=== PATIENT | female | born 1950 | race Caucasian/White ===

== ENCOUNTER → 2016-11-21 | Outpatient (CLI) | payer MEDICARE ==
--- NOTE | 2016-11-21 14:42 | XR ---
EXAMINATION TYPE: XR chest 2V DATE OF EXAM: 11/21/2016 12:46 PM HISTORY: R05 cough. REFERENCE: NONE. FINDINGS: The lungs are clear. Pleural spaces are clear. The heart is not enlarged. IMPRESSION: NORMAL CHEST.
== END | disposition home or self-care (01) ==
LOC: RADXRMAIN 12:26
PROVIDERS: ATTEND Family Medicine
DX: R05 Cough (principal)
CPT/HCPCS: 71020

== ENCOUNTER → 2018-03-27 | Outpatient (CLI) | payer MEDICARE ==
--- NOTE | 2018-03-28 12:24 | MM ---
Reason for exam: screening (asymptomatic). Last mammogram was performed 2 years and 1 month ago. History: Patient is postmenopausal. Physical Findings: A clinical breast exam by your physician is recommended on an annual basis and results should be correlated with mammographic findings. MG 3D Screening Mammo W/Cad Bilateral CC and MLO view(s) were taken. Prior study comparison: March 08, 2016, bilateral MG 3d screening mammo w/cad. March 21, 2012, bilateral digital screening mammo w/CAD. There are scattered fibroglandular densities. Benign appearing bilateral calcifications. No suspicious abnormality. ASSESSMENT: Benign, BI-RAD 2 RECOMMENDATION: Routine screening mammogram of both breasts in 1 year.
== END | disposition home or self-care (01) ==
LOC: RADMAMWWP 13:37
PROVIDERS: ATTEND Family Medicine
DX: Z12.31 Encounter for screening mammogram for malignant neoplasm of breast (principal)
CPT/HCPCS: 77063; 77067

== ENCOUNTER → 2018-06-12 | Outpatient (CLI) | payer MEDICARE ==
--- NOTE | 2018-06-13 08:22 | BD ---
EXAMINATION TYPE: Axial Bone Density DATE OF EXAM: 06/12/2018 COMPARISON: DEXA bone scan March 01, 2012 CLINICAL HISTORY: Postmenopausal female Height: 62 Weight: 183.2 FRAX RISK QUESTIONS: Alcohol (3 or more units per day): no Family History (Parent hip fracture): no Glucocorticoids (More than 3mos): no (Ex: prednisone, prednisolone, methylprednisolone, dexamethasone, and hydrocortisone). History of Fracture in Adulthood: no Secondary Osteoporosis: 1. Type 1 Diabetes: no 2. Hyperthyroidism: no 3. Menopause before 45: no 4. Malnutrition: no 5. Chronic liver disease: no Rheumatoid Arthritis: no Current Tobacco Use: no RISK FACTORS HISTORY OF: Active: sometimes Diet low in dairy products/other sources of calcium: yes Postmenopausal woman: hysterectomy at 47 Lost more than 2 inches in height since high school: just 2 inches MEDICATIONS: anti-anxiety med, cholesterol med Additional History: EXAM MEASUREMENTS: Bone mineral densitometry was performed using the [employer]ancion System. Bone mineral density as measured about the Lumbar spine is: ----- L1-L4(G/cm2): 0.910 T Score Values are as follows: ----- L2: -2.4 ----- L3: -2.2 ----- L4: -2.2 ----- L1-L4: -2.3 Bone mineral density has: decreased -11.0 % since study of: 03.21.2012 Bone mineral density about the R hip (g/cm2): 0.733 Bone mineral density about the L hip (g/cm2): 0.737 T Score values are as follows: -----R Neck: -2.2 -----L Neck: -2.2 -----R Total: -1.5 -----L Total: -1.8 Bone mineral density has: decreased -5.5 % since study of: 03.21.2012 IMPRESSION: Osteopenia (T Score between -2.5 and -1) remains present and low back and both hips. Bone density not ed decreased or diminished from 2011. There remains slightly increased risk of fracture and the patient may be considered for treatment. Re-Screen 2-5 years. NOTE: T-SCORE=SD OF THE YOUNG ADULT MEAN.
== END | disposition home or self-care (01) ==
LOC: RADBDWWP 16:27
PROVIDERS: ATTEND Family Medicine
DX: M85.88 Other specified disorders of bone density and structure, other site (principal); M85.852 Other specified disorders of bone density and structure, left thigh; M85.851 Other specified disorders of bone density and structure, right thigh
CPT/HCPCS: 77080

== ENCOUNTER → 2018-09-07 | Outpatient (CLI) | payer MEDICARE | END | disposition home or self-care (01) | LOC: LABWHC1 14:29 | PROVIDERS: ATTEND Internal Medicine Critical Care Medicine | DX: J45.909 Unspecified asthma, uncomplicated (principal) | CPT/HCPCS: 36415; 82785; 85008 ==

== ENCOUNTER → 2019-06-07 | Outpatient (CLI) | payer MEDICARE ==
--- NOTE | 2019-06-10 09:23 | MM ---
Reason for exam: screening (asymptomatic). Last mammogram was performed 1 year and 2 months ago. History: Patient is postmenopausal. Physical Findings: A clinical breast exam by your physician is recommended on an annual basis and results should be correlated with mammographic findings. MG 3D Screening Mammo W/Cad Bilateral CC and MLO view(s) were taken. Prior study comparison: March 27, 2018, bilateral MG 3d screening mammo w/cad. March 08, 2016, bilateral MG 3d screening mammo w/cad. There are scattered fibroglandular densities. Benign appearing bilateral calcifications. No suspicious abnormality. No significant changes when compared with prior studies. ASSESSMENT: Benign, BI-RAD 2 RECOMMENDATION: Routine screening mammogram of both breasts in 1 year.
== END | disposition home or self-care (01) ==
LOC: RADMAMWWP 14:19
PROVIDERS: ATTEND Family Medicine
DX: Z12.31 Encounter for screening mammogram for malignant neoplasm of breast (principal)
CPT/HCPCS: 77063; 77067

== ENCOUNTER → 2021-04-20 | Outpatient (CLI) | payer MEDICARE ==
--- NOTE | 2021-04-20 15:32 | ECHOS ---
STRESS ECHOCARDIOGRAM INDICATIONS: Dyspnea BASELINE HEART RATE: 73 BASELINE BLOOD PRESSURE: 143/67 MAXIMUM HEART RATE: 147 MAXIMUM BLOOD PRESSURE: 210/73 85% MPHR: 126 100% MPHR: 148 METS: 7.3 MAXIMUM STAGE REACHED: 2 TOTAL EXERCISE TIME: 6:03 CLINICAL INFORMATION: Baseline EKG revealed normal sinus rhythm without significant ST-T changes. Patient walked on a standard Eliseo protocol for 6 minutes 3 seconds, achieved a maximal heart rate of 147 beats per minute, which is more than 85% of predicted maximal. She developed fatigue and shortness of breath but did not have any angina or arrhythmia. EKG did not reveal any ST-segment changes to indicate ischemia. By EKG criteria, this is a negative stress test with limited exercise capacity. The patient had a hypertensive response to exercise with a peak blood pressure of 210/73. Resting blood pressure was 143/67. By EKG criteria, this is a negative stress test with fair exercise capacity. Baseline echo images revealed normal wall motion and wall thickening of all segments. At peak exercise there was good augmentation of left ventricular wall motion and wall thickening of all segments, suggesting that there is no evidence of stress-induced ischemia on this study. FINAL IMPRESSION: 1. Fair exercise capacity with a negative stress test by EKG criteria. 2. Normal stress echocardiogram without evidence of ischemia. MMODL / IJN: [id number] /
== END | disposition home or self-care (01) ==
LOC: RADNMMAIN 10:01
PROVIDERS: ATTEND Family Medicine
DX: R06.02 Shortness of breath (principal); R53.83 Other fatigue
CPT/HCPCS: 93351

== ENCOUNTER 2021-08-09 17:39 | Emergency (ER) | payer MEDICARE ==
[2021-08-09 18:26] VITALS: BP 174/83; PULSE 76; RESP 16; TEMP 98.9
--- NOTE | 2021-08-09 18:27 | ED ---
SOB HPI <Joana Gibson - Last Filed: 08/09/21 18:25> <Power Larsen - Last Filed: 08/09/21 20:49> - General Stated Complaint: covid+, increased SOB Time Seen by Provider: 08/09/21 18:16 - History of Present Illness Initial Comments: Janay is a pleasant 71yo F with PMH of asthma who presents to the ER today via private vehicle requesting monoclonal antibody therapy for COVID-19. Patient is not vaccinated. Patient reports she has had some cough, shortness of breath and headache for a couple of days, she took 2 home tests today and was positive for COVID. (Joana Gibson) Patient additionally describes to me that she was having congestion as well as some chest tightness. Symptoms otherwise as above no history of heart disease or is a heart disease history in the family at her age however. (Power Larsen) - Related Data Home Medications Medication Instructions Recorded Confirmed Ascorbic Acid [Vitamin C] 500 mg PO DAILY 08/09/21 08/09/21 Atorvastatin [Lipitor] 20 mg PO HS 08/09/21 08/09/21 Cholecalciferol [Vitamin D3 (25 25 mcg PO DAILY 08/09/21 08/09/21 Mcg = 1000 Iu)] Citalopram Hydrobromide 40 mg PO HS 08/09/21 08/09/21 Doxycycline Hyclate 100 mg PO BID 08/09/21 08/09/21 Montelukast [Singulair] 10 mg PO HS 08/09/21 08/09/21 Zinc 50 mg PO DAILY 08/09/21 08/09/21 Allergies Allergy/AdvReac Type Severity Reaction Status Date / Time No Known Allergies Allergy Verified 08/09/21 20:21 Review of Systems ROS Other: All systems not noted in ROS Statement are negative. <Joana Gibson - Last Filed: 08/09/21 18:25> ROS Other: All systems not noted in ROS Statement are negative. <Power Larsen - Last Filed: 08/09/21 20:49> ROS Statement: Those systems with pertinent positive or pertinent negative responses have been documented in the HPI. General Exam General appearance: alert, in no apparent distress Head exam: Present: atraumatic, normocephalic, normal inspection Eye exam: Present: normal appearance, PERRL, EOMI. Absent: scleral icterus, conjunctival injection, periorbital swelling ENT exam: Present: normal exam, mucous membranes moist Neck exam: Present: normal inspection. Absent: tenderness, meningismus, lymphadenopathy Respiratory exam: Present: normal lung sounds bilaterally. Absent: respiratory distress, wheezes, rales, rhonchi, stridor Cardiovascular Exam: Present: regular rate, normal rhythm, normal heart sounds. Absent: systolic murmur, diastolic murmur, rubs, gallop, clicks GI/Abdominal exam: Present: soft, normal bowel sounds. Absent: distended, tenderness, guarding, rebound, rigid Extremities exam: Present: normal inspection, full ROM, normal capillary refill. Absent: tenderness, pedal edema, joint swelling, calf tenderness Back exam: Present: normal inspection Neurological exam: Present: alert, oriented X3, CN II-XII intact Psychiatric exam: Present: normal affect, normal mood Skin exam: Present: warm, dry, intact, normal color. Absent: rash <Power Larsen - Last Filed: 08/09/21 20:49> - General Exam Comments Initial Comments: This is a well-developed well-nourished awake alert oriented 3 female (Power Larsen) Course Vital Signs 08/09/21 18:23 Temperature 98.9 F Pulse Rate 76 Respiratory 16 Rate Blood Pressure 174/83 O2 Sat by Pulse 96 Oximetry Medical Decision Making - Lab Data Result diagrams: 08/09/21 19:44 08/09/21 19:44 - EKG Data -: EKG Interpreted by [facility] EKG shows normal: sinus rhythm, axis, intervals, QRS complexes, ST-T waves Rate: normal - Radiology Data Radiology results: report reviewed (Imaging and report were reviewed no acute findings), image reviewed <Power Larsen - Last Filed: 08/09/21 20:49> - Medical Decision Making I did a long discussion with the patient regarding findings patient is a candidate for antibody effusion which she will receive she'll be discharged home after that. She will follow-up with her doctor and return as needed (Power Larsen) - Lab Data Lab Results 08/09/21 08/09/21 08/09/21 Range/Units 18:37 19:44 19:44 WBC 3.6 L (3.8-10.6) k/uL RBC 4.75 (3.80-5.40) m/uL Hgb 13.8 (11.4-16.0) gm/dL Hct 42.3 (34.0-46.0) % MCV 88.9 (80.0-100.0) fL MCH 29.0 (25.0-35.0) pg MCHC 32.7 (31.0-37.0) g/dL RDW 12.1 (11.5-15.5) % Plt Count 147 L (150-450) k/uL MPV 7.7 Neutrophils % 57 % Lymphocytes % 23 % Monocytes % 15 % Eosinophils % 1 % Basophils % 1 % Neutrophils # 2.0 (1.3-7.7) k/uL Lymphocytes # 0.8 L (1.0-4.8) k/uL Monocytes # 0.5 (0-1.0) k/uL Eosinophils # 0.0 (0-0.7) k/uL Basophils # 0.0 (0-0.2) k/uL PT 10.3 (9.0-12.0) sec INR 1.0 (<1.2) APTT 24.3 (22.0-30.0) sec D-Dimer 0.29 (<0.60) mg/L FEU Sodium (137-145) mmol/L Potassium (3.5-5.1) mmol/L Chloride (98-107) mmol/L Carbon Dioxide (22-30) mmol/L Anion Gap mmol/L BUN (7-17) mg/dL Creatinine (0.52-1.04) mg/dL Est GFR (CKD-EPI)AfAm (>60 ml/min/1.73 sqM) Est GFR (CKD-EPI)NonAf (>60 ml/min/1.73 sqM) Glucose (74-99) mg/dL Plasma Lactic Acid Cecilio (0.7-2.0) mmol/L Calcium (8.4-10.2) mg/dL Magnesium (1.6-2.3) mg/dL Total Bilirubin (0.2-1.3) mg/dL AST (14-36) U/L ALT (4-34) U/L Alkaline Phosphatase (38-126) U/L Troponin I (0.000-0.034) ng/mL NT-Pro-B Natriuret Pep pg/mL Total Protein (6.3-8.2) g/dL Albumin (3.5-5.0) g/dL Coronavirus (PCR) Detected A (Not Detectd) 08/09/21 08/09/21 08/09/21 Range/Units 19:44 19:44 19:44 WBC (3.8-10.6) k/uL RBC (3.80-5.40) m/uL Hgb (11.4-16.0) gm/dL Hct (34.0-46.0) % MCV (80.0-100.0) fL MCH (25.0-35.0) pg MCHC (31.0-37.0) g/dL RDW (11.5-15.5) % Plt Count (150-450) k/uL MPV Neutrophils % % Lymphocytes % % Monocytes % % Eosinophils % % Basophils % % Neutrophils # (1.3-7.7) k/uL Lymphocytes # (1.0-4.8) k/uL Monocytes # (0-1.0) k/uL Eosinophils # (0-0.7) k/uL Basophils # (0-0.2) k/uL PT (9.0-12.0) sec INR (<1.2) APTT (22.0-30.0) sec D-Dimer (<0.60) mg/L FEU Sodium 136 L (137-145) mmol/L Potassium 3.6 (3.5-5.1) mmol/L Chloride 104 (98-107) mmol/L Carbon Dioxide 22 (22-30) mmol/L Anion Gap 10 mmol/L BUN 9 (7-17) mg/dL Creatinine 0.64 (0.52-1.04) mg/dL Est GFR (CKD-EPI)AfAm >90 (>60 ml/min/1.73 sqM) Est GFR (CKD-EPI)NonAf 89 (>60 ml/min/1.73 sqM) Glucose 117 H (74-99) mg/dL Plasma Lactic Acid Cecilio 1.6 (0.7-2.0) mmol/L Calcium 8.9 (8.4-10.2) mg/dL Magnesium 1.8 (1.6-2.3) mg/dL Total Bilirubin 0.5 (0.2-1.3) mg/dL AST 35 (14-36) U/L ALT 23 (4-34) U/L Alkaline Phosphatase 115 (38-126) U/L Troponin I <0.012 (0.000-0.034) ng/mL NT-Pro-B Natriuret Pep pg/mL Total Protein 6.2 L (6.3-8.2) g/dL Albumin 3.5 (3.5-5.0) g/dL Coronavirus (PCR) (Not Detectd) 08/09/21 Range/Units 19:44 WBC (3.8-10.6) k/uL RBC (3.80-5.40) m/uL Hgb (11.4-16.0) gm/dL Hct (34.0-46.0) % MCV (80.0-100.0) fL MCH (25.0-35.0) pg MCHC (31.0-37.0) g/dL RDW (11.5-15.5) % Plt Count (150-450) k/uL MPV Neutrophils % % Lymphocytes % % Monocytes % % Eosinophils % % Basophils % % Neutrophils # (1.3-7.7) k/uL Lymphocytes # (1.0-4.8) k/uL Monocytes # (0-1.0) k/uL Eosinophils # (0-0.7) k/uL Basophils # (0-0.2) k/uL PT (9.0-12.0) sec INR (<1.2) APTT (22.0-30.0) sec D-Dimer (<0.60) mg/L FEU Sodium (137-145) mmol/L Potassium (3.5-5.1) mmol/L Chloride (98-107) mmol/L Carbon Dioxide (22-30) mmol/L Anion Gap mmol/L BUN (7-17) mg/dL Creatinine (0.52-1.04) mg/dL Est GFR (CKD-EPI)AfAm (>60 ml/min/1.73 sqM) Est GFR (CKD-EPI)NonAf (>60 ml/min/1.73 sqM) Glucose (74-99) mg/dL Plasma Lactic Acid Cecilio (0.7-2.0) mmol/L Calcium (8.4-10.2) mg/dL Magnesium (1.6-2.3) mg/dL Total Bilirubin (0.2-1.3) mg/dL AST (14-36) U/L ALT (4-34) U/L Alkaline Phosphatase (38-126) U/L Troponin I (0.000-0.034) ng/mL NT-Pro-B Natriuret Pep 121 pg/mL Total Protein (6.3-8.2) g/dL Albumin (3.5-5.0) g/dL Coronavirus (PCR) (Not Detectd) - EKG Data EKG Comments: No sinus rhythm at 74. Interval 132 QRS 82 QT since QTC 380/[address]-t wave changes (Power Larsen) Disposition <Joana Gibson - Last Filed: 08/09/21 18:25> Is patient prescribed a controlled substance at d/c from ED?: No <Power Larsen - Last Filed: 08/09/21 20:49> Clinical Impression: COVID-19 Disposition: HOME SELF-CARE Condition: Good Instructions (If sedation given, give patient instructions): Coronavirus Disease 2019 (COVID-19) Additional Instructions: Symptomatic care. Follow-up with your doctor Referrals: Ze Martinez DO [Primary Care Provider] - 1-2 days
[2021-08-09] MEDS ORDERED: ALBUTEROL HFA INHALER INHALATION STA (18:51)
[2021-08-09 19:51] LABS: Basophils % (A) 1 %; Eosinophils % (A) 1 %; HCT 42.3 % (34.0-46.0); HGB 13.8 gm/dL (11.4-16.0); Lymphocytes # (A) 0.8 k/uL (1.0-4.8); Lymphocytes % (A) 23 %; MCHC 32.7 g/dL (31.0-37.0); MCV 88.9 fL (80.0-100.0); Mean Platelet Volume 7.7; Monocytes # (A) 0.5 k/uL (0-1.0); Monocytes % (A) 15 %; Neutrophils % (A) 57 %; Platelet Count 147 k/uL (150-450); RBC 4.75 m/uL (3.80-5.40); RDW 12.1 % (11.5-15.5); WBC 3.6 k/uL (3.8-10.6)
[2021-08-09 20:00] LABS: ALT 23 U/L (4-34); AST 35 U/L (14-36); African American GFR (CKD) >90 (>60 ml/min/1.73 sqM); Albumin 3.5 g/dL (3.5-5.0); Alkaline Phosphatase 115 U/L (38-126); Anion Gap 10 mmol/L; Blood Urea Nitrogen 9 mg/dL (7-17); Calcium 8.9 mg/dL (8.4-10.2); Carbon Dioxide 22 mmol/L (22-30); Chloride 104 mmol/L (98-107); Glucose 117 mg/dL (74-99); Magnesium 1.8 mg/dL (1.6-2.3); Non-African American GFR(CKD) 89 (>60 ml/min/1.73 sqM); Potassium 3.6 mmol/L (3.5-5.1); Sodium 136 mmol/L (137-145); Total Bilirubin 0.5 mg/dL (0.2-1.3); Total Protein 6.2 g/dL (6.3-8.2)
[2021-08-09 20:12] LABS: Partial Thromboplastin Time 24.3 sec (22.0-30.0); Prothrombin Time 10.3 sec (9.0-12.0)
[2021-08-09] MEDS ORDERED: SODIUM CHLORIDE 0.9% 50 ML IVPB ONE (20:30)
--- NOTE | 2021-08-09 20:44 | XR ---
EXAMINATION TYPE: XR chest 2V DATE OF EXAM: 08/09/2021 COMPARISON: 08/10/2018 HISTORY: Shortness of breath TECHNIQUE: Frontal and lateral views of the chest are obtained. FINDINGS: There is no focal air space opacity, pleural effusion, or pneumothorax seen. The cardiac silhouette size is within normal limits. The osseous structures are intact. IMPRESSION: No acute cardiopulmonary process.
[2021-08-09] MEDS ORDERED: BAMLANIVIMAB (EUA) 700 MG, ETESEVIMAB (EUA) 1,400 MG in SODIUM CHLORIDE 0.9% 50 ML IVPB ONE (20:45)
== END 2021-08-09 22:58 | disposition home or self-care (01) ==
LOC: EC 17:39
DX: U07.1 COVID-19 (principal); Z79.899 Other long term (current) drug therapy
CPT/HCPCS: 36415; 94640; 93005; 85379; 83880; 80053; 83605; 83735; 84484; 85025; 85610; 85730; 87040; 87635; 71046; 99285; J3490

== ENCOUNTER → 2021-10-28 | Outpatient (CLI) | payer MEDICARE | END | disposition home or self-care (01) | LOC: LABWHC1 13:06 | PROVIDERS: ATTEND Internal Medicine Critical Care Medicine | DX: J45.909 Unspecified asthma, uncomplicated (principal) | CPT/HCPCS: 36415; 85008 ==

== ENCOUNTER 2021-12-28 09:26 | Day surgery (SDC) | payer MEDICARE ==
[2021-12-24 15:03] VITALS: BMI 32.4
[~2021-12-28 09:26] MED LIST: LACTATED RINGERS 1,000 ML IV SCH; LIDOCAINE 1% (10MG/ML) FOR IV START INTRADERMA PRN; ONDANSETRON 4 MG/2 ML VIAL IVP PRN
[2021-12-28 10:00] VITALS: RESP 16; TEMP 97.5
[2021-12-28] MEDS ORDERED: LIDOCAINE 2% INJ 20 MG/ML (2 ML VIAL) ONE (10:59)
[2021-12-28] MEDS ORDERED: PROPOFOL 10 MG/ML 20 ML VIAL IV ONE (10:59)
--- NOTE | 2021-12-28 11:32 | P.PCN ---
Date of Procedure: 12/28/21 Procedure(s) Performed: BRIEF HISTORY: Patient is a 71-year-old pleasant female scheduled for an elective colonoscopy as a part of evaluation of positive cologuard. Her last colonoscopy was 20 years ago. PROCEDURE PERFORMED: Colonoscopy. PREOPERATIVE DIAGNOSIS: Positive cologuard IV sedation per Anesthesia. PROCEDURE: After informed consent was obtained, the patient, was brought into the endoscopy unit. IV sedation was administered by Anesthesia under continuous monitoring. Digital rectal examination was normal. Initially the Olympus CF-160 flexible video colonoscope was then inserted in the rectum, gradually advanced into the cecum; and the scope could not be advanced any further. Scope was removed and a pediatric colonoscopy was then introduced into the rectum and gradually advanced into the cecum with moderate to severe difficulty. Careful examination was performed as the scope was gradually being withdrawn. Ileocecal valve and the appendiceal orifice were visualized and appeared normal. Prep was excellent. Mucosa of the cecum, ascending colon, transverse colon, descending colon, sigmoid colon, and rectum appeared normal. Sigmoid diverticulosis. Retroflexion was performed in the rectum and no lesions were seen. The patient tolerated the procedure well. IMPRESSION: Normal-appearing colon from rectum to cecum with no evidence of colorectal neoplasia . Moderate sigmoid diverticulosis. RECOMMENDATIONS: Findings of this examination were discussed with the patient as well as a family.. She was advised to have a repeat screening colonoscopy in 10 years.
[2021-12-28 12:04] VITALS: BP 150/86; PULSE 69
== END 2021-12-28 12:33 | disposition home or self-care (01) ==
LOC: ORWHC2ENDO 09:26
PROVIDERS: ATTEND Internal Medicine Gastroenterology
DX: Z12.11 Encounter for screening for malignant neoplasm of colon (principal); K57.30 Diverticulosis of large intestine without perforation or abscess without bleeding
CPT/HCPCS: 45378; J2704; J2001

== ENCOUNTER → 2022-01-12 | Outpatient (CLI) | payer MEDICARE ==
--- NOTE | 2022-01-12 15:44 | CT ---
EXAMINATION TYPE: CT chest w con DATE OF EXAM: 01/12/2022 COMPARISON: NONE HISTORY: Dyspnea CT DLP: 338.0 mGycm. Automated Exposure Control for Dose Reduction was Utilized. TECHNIQUE: CT scan of the thorax is performed following with IV Contrast, patient injected with 100 mL of Isovue 300. FINDINGS: LUNGS: Mild linear scarring and/or atelectasis left lung base. Right lung is clear. No suspicious foc al consolidation. No concerning pulmonary nodules or masses. There is no pleural effusion or pneumoth orax seen. The tracheobronchial tree is patent. MEDIASTINUM: There are no greater than 1 cm hilar or mediastinal lymph nodes. Tiny anterior and infer ior pericardial effusion is seen. No cardiomegaly. OTHER: Cholecystectomy clips. There are large staghorn type calculi in the left kidney involving midd le pole and lower pole calyces. These are even well seen on the localizer. For reference lower pole c alculus measures 1.7 cm long axis coronal image 52. IMPRESSION: 1. Mild left basilar linear scarring and/or atelectasis. No acute pulmonary process. 2. Large staghorn type calculi left kidney midpole level and lower pole level. Advise urology referra shey
== END | disposition home or self-care (01) ==
LOC: RADCTMAIN 11:31
PROVIDERS: ATTEND Internal Medicine Critical Care Medicine
DX: N20.0 Calculus of kidney (principal); J98.4 Other disorders of lung
CPT/HCPCS: 82565; 84520; 71260; 36415; Q9967

== ENCOUNTER → 2022-05-10 | Outpatient (CLI) | payer MEDICARE ==
--- NOTE | 2022-05-10 14:14 | P.SLEEP ---
History of Present Illness H&P Date: 05/10/22 Chief Complaint: Hypersomnia This is a 71-year-old female patient was referred to me for obstructive sleep apnea. The patient has been told by family members including her daughters that she snores very loud and she is feeling more fatigued and tired during the day and this obviously raises the concern for obstructive sleep apnea. The patient is currently and she lost her for The case of renal cell carcinoma approximately 13 years ago. She is knows breathing. She has excessive grinding of the teeth and an overbite. No recent weight gain her weight has been essentially stable over the past 10 years and she may have probably gained around 10 pounds. She is going to bed at around 11 PM, waking up at 8:30 AM in the morning. She does not use an alarm, and she is is waking up relatively fatigued and not refreshed.. No nighttime shortness of breath or heartburn. No nighttime chest pain. Denies waking up choking or gasping for air. Occasionally she has night sweating. No issues with memory or concentration. She is able to generate sleep, and her sleep is not fragmented and she wakes up at night probably wants to go to the bathroom. Her current Enterprise score of 6. No other significant cardiovascular complications. No significant congestion heart failure. No throat. No myocardial infarction. No facial trauma. No head trauma. No history of any cardiac arrhythmias at this point in time. No personal or family history of obstructive sleep apnea. Review of Systems Constitutional: Reports daytime sleepiness, Reports fatigue Eyes: denies as per HPI, denies blurred vision, denies bulging eye, denies decreased vision, denies diplopia, denies discharge, denies dry eye, denies irritation, denies itching, denies pain, denies photophobia, denies loss of peripheral vision, denies loss of vision, denies tunnel vision/blind spots Ears: deny: decreased hearing, ear discharge, earache, tinnitus Ears, nose, mouth and throat: Reports as per HPI Breasts: absent: as per HPI, change in shape, gynecomastia, masses, nipple discharge, pain, skin changes, swelling Cardiovascular: Reports as per HPI Respiratory: Reports as per HPI, Reports snoring Gastrointestinal: Reports as per HPI Genitourinary: Reports as per HPI Menstruation: Reports as per HPI Musculoskeletal: Reports as per HPI Musculoskeletal: absent: ankle pain, ankle stiffness, ankle swelling Integumentary: Reports as per HPI Neurological: Reports as per HPI Psychiatric: Reports as per HPI Endocrine: Reports as per HPI Hematologic/Lymphatic: Reports as per HPI Allergic/Immunologic: Reports as per HPI Past Medical History Past Medical History: Asthma, Hyperlipidemia Additional Past Medical History / Comment(s): Hx. of kidney stones, hyp erlipidemia, asthma, osteopenia, vitamin D deficiency History of Any Multi-Drug Resistant Organisms: None Reported Past Surgical History: Cholecystectomy, Hysterectomy Additional Past Surgical History / Comment(s): colonoscopy, wrist surgery, kidney surgery & Lithotripsy. Past Anesthesia/Blood Transfusion Reactions: No Reported Reaction Smoking Status: Never smoker - Past Family History Mother Family Medical History: AFIB Medications and Allergies Home Medications Medication Instructions Recorded Confirmed Type Ascorbic Acid [Vitamin C] 500 mg PO DAILY 08/09/21 12/24/21 History Atorvastatin [Lipitor] 20 mg PO HS 08/09/21 12/24/21 History Cholecalciferol [Vitamin D3 (25 25 mcg PO DAILY 08/09/21 12/24/21 History Mcg = 1000 Iu)] Citalopram Hydrobromide 40 mg PO HS 08/09/21 12/24/21 History [Citalopram HBr] Montelukast [Singulair] 10 mg PO HS 08/09/21 12/24/21 History Zinc 50 mg PO DAILY 08/09/21 12/24/21 History Allergies Allergy/AdvReac Type Severity Reaction Status Date / Time No Known Allergies Allergy Verified 12/28/21 09:51 Physical Exam BP is 162/84, pulse of 77, respiration of 16, temperature is 97.5, weight is 183 and a body mass index is 33.2. Neck size is 15 inches. Oxygen saturation 96% on room air. The patient appeared well nourished and normally developed. Vital signs as documented. Head exam is unremarkable. No scleral icterus or corneal arcus noted. Neck is without jugular venous distension, thyromegaly, or carotid bruits. Carotid upstrokes are brisk bilaterally. The patient has evidence of grinding of the teeth and she has an overbite along with a Mallampati class IV. Lungs are clear to auscultation and percussion. Cardiac exam reveals the PMI to be normally sized and situated. Rhythm is regular. First and second heart sounds normal. No murmurs, rubs or gallops. Abdominal exam reveals normal bowel sounds, no masses, no organomegaly and no aortic enlargement. Extremities are nonedematous and both femoral and pedal pulses are normal.Examination of the skin revealed no evidence of significant rashes, suspicious appearing nevi or ot her concerning lesions.Neurologically, the patient is awake and alert and the patient does not have any focal neurological deficit. Cranial nerves are essentially intact. Assessment and Plan Plan: Suspected obstructive sleep apnea currently under investigation. Average risk for obstructive sleep apnea. She has no recent weight gain. Nevertheless, she is been told to snoring quits breathing and she has Mallampati class IV along with an overbite. As such, there may be an underlying sleep breathing disorder. Chronic fatigue and sleepiness with an Enterprise score of 6 Grinding of the teeth Bronchial asthma moderate persistent Hyperlipidemia Kidney stones Osteoarthritis and osteopenia History of depression Plan Maintaining adequate sleep hygiene measures Maintain regular sleep schedule Encourage weight loss Treat comorbidities Proceed with his polysomnogram looking for any significant sleep breathing disorder and decision on treatment with depend largely on the results of the sleep study. We'll continue to follow Sleep Note - Sleep Note Sleep Note: Temperature: Pulse Rate: Respiratory Rate: Blood Pressure: SpO2: Height: Weight: BMI: Neck Circumference:
== END ==
LOC: SLEEP 13:06
PROVIDERS: ATTEND Internal Medicine Critical Care Medicine
DX: R40.0 Somnolence (principal); R53.83 Other fatigue; G47.63 Sleep related bruxism; J45.40 Moderate persistent asthma, uncomplicated; E78.5 Hyperlipidemia, unspecified; N20.0 Calculus of kidney; M19.90 Unspecified osteoarthritis, unspecified site; M85.80 Other specified disorders of bone density and structure, unspecified site; F32.A Depression, unspecified
CPT/HCPCS: 99211

== ENCOUNTER 2022-08-09 11:10 | Day surgery (SDC) | payer MEDICARE ==
[2022-08-08 11:27] VITALS: BMI 32.2
[~2022-08-09 11:10] MED LIST changes: +ALBUTEROL NEB (CONC) 2.5 MG/0.5 ML INHALATION ONE; -LIDOCAINE 1% (10MG/ML) FOR IV START INTRADERMA PRN; +LIDOCAINE 2% (PF) 20 MG/ML 5 ML VIAL INHALATION ONE; +LIDOCAINE VISCOUS 300 MG/15 ML CUP MUCOUS MEM ONE; -ONDANSETRON 4 MG/2 ML VIAL IVP PRN
[2022-08-09 11:55] LABS: Glucose,Whole Blood 112 mg/dL (70-110)
[2022-08-09] MEDS ORDERED: KETAMINE 10 MG/ML 20 ML VIAL ONE (12:00)
[2022-08-09] MEDS ORDERED: MIDAZOLAM 2 MG/2 ML VIAL ONE (12:00)
[2022-08-09] MEDS ORDERED: LIDOCAINE 2% INJ 20 MG/ML (2 ML VIAL) ONE (12:00)
[2022-08-09] MEDS ORDERED: PROPOFOL 10 MG/ML 20 ML VIAL IV ONE (12:00)
[2022-08-09] MEDS ORDERED: LIDOCAINE 2% INJ 20 MG/ML INTRATRACH ONE (12:14)
[2022-08-09 12:37] VITALS: TEMP 98.6
[2022-08-09 12:50] VITALS: RESP 16
[2022-08-09 13:37] VITALS: BP 153/84; PULSE 63
--- NOTE | 2022-08-09 19:37 | PCN ---
PROCEDURE NOTE PROCEDURES PERFORMED: Bronchoscopy, airway examination, therapeutic lavage, and bronchoalveolar lavage, right middle lobe. PREOPERATIVE DIAGNOSES: Severe asthma, acute bronchitis with bronchospasm, and retained secretions. POSTOPERATIVE DIAGNOSES: Severe asthma, acute bronchitis with bronchospasm, and retained secretions. DESCRIPTION OF PROCEDURE: There were informed consent and universal time-out. The patient's procedure took place in room #1. Anesthesia provided general anesthesia including Dr. Hand and Dr. Bourne. GOODYEAR STITCHER was also present. After the patient was adequately sedated and being fully monitored, the bronchoscope was inserted through the right nostril. It passed through the right nasopharynx into the oropharynx, then into the hypopharynx. There was significant crowding of the hypopharynx. The hypopharyngeal structures including anterior commissure, true cords, false cords, arytenoids, piriform sinuses - right and left, and valleculae all appeared otherwise normal. Next, after topicalization of the glottic opening, the bronchoscope was pushed through the glottic opening into the trachea. There were secretions noted throughout the trachea. They were suctioned. The trachea otherwise was normal. Tracheal tien was sharp. Right and left mainstem were topicalized. Afterwards, there was a thorough evaluation of both lungs including the right upper lobe and its 3 segments, right middle lobe and its 2 segments, right lower lobe and its 5 segments, left upper lobe proper and its 2 segments, lingula and its 2 segments, and left lower lobe and its 4 segments. Findings were similar throughout including diffuse moderate bronchitis. There were airway erythema and hyperemia. There was some mucosal friability. The mucosa bled easily. There were thick secretions noted throughout. They were suctioned. There was no dominant mass or tumor. Next, the bronchoscope was wedged into the right middle lobe. We did a formal BAL with 30 mL recovered. The bronchoscope was then withdrawn. The fluid will be sent for analysis including cytology and microbiology. The patient tolerated the procedure well. There was no immediate complication. The patient was taken to recovery. The patient's niece was not available for me to talk to her. The patient herself was too lethargic and somnolent from the procedure. MMODL / IJN: [id number] /
[2022-08-09 19:40] LABS: Appearance,BF Clear
== END 2022-08-09 13:51 | disposition home or self-care (01) ==
LOC: ORWHC2ENDO 11:10
PROVIDERS: ATTEND Internal Medicine Critical Care Medicine
DX: J20.9 Acute bronchitis, unspecified (principal); J45.909 Unspecified asthma, uncomplicated
CPT/HCPCS: 88108; 88305; 89050; 87252; 87070; 87205; 87116; 87102; 87206; 31624; J2001 ×2; J2250; J2704; 87496; 87498; 87502; 87529; 87634; 87798

== ENCOUNTER → 2022-11-28 | Outpatient (CLI) | payer MEDICARE ==
[2022-11-28 16:24] LABS: African American GFR (CKD) 84.2 (60.0-200.0); Albumin 4.2 g/dL (3.8-4.9); Albumin/Globulin Ratio 1.83 (1.60-3.17); Anion Gap 9.9 mmol/L (10.00-18.00); BUN/Creat Ratio 12.25 Ratio (12.00-20.00); Blood Urea Nitrogen 9.8 mg/dL (9.0-27.0); Calcium 9.4 mg/dL (8.7-10.3); Carbon Dioxide 25.1 mmol/L (20.0-27.5); Globulin 2.3 g/dL (1.6-3.3); Non-African American GFR(CKD) 72.6 (60.0-200.0); Potassium 4.4 mmol/L (3.5-5.5); Total Bilirubin 0.9 mg/dL (0.30-1.20); Total Protein 6.5 g/dL (6.2-8.2)
[2022-11-29 05:25] LABS: Basophils # (A) 0.01 X 10*3/uL (0.00-0.10); Basophils % (A) 0.2 %; Eosinophils # (A) 0 X 10*3/uL (0.04-0.35); Eosinophils % (A) 0 %; HGB 14.2 g/dL (12.0-15.0); Immature Grans, Automated 0.5 %; Lymphocytes # (A) 0.97 X 10*3/uL (0.90-5.00); Lymphocytes % (A) 17.5 %; MCH 28.9 pg (27.0-32.0); MCHC 32.3 g/dL (32.0-37.0); MCV 89.4 fL (80.0-97.0); Monocytes # (A) 0.64 X 10*3/uL (0.20-1.00); Monocytes % (A) 11.6 %; NRBC Per 100 WBC 0 /100 WBCS (0.0-0.0); Neutrophils # (A) 3.88 X 10*3/uL (1.80-7.70); Neutrophils % (A) 70.2 %; Platelet Count 220 X 10*3/uL (140-440); RBC 4.92 X 10*6/uL (4.10-5.20); RDW 11.7 % (11.5-14.5); WBC 5.53 X 10*3/uL (4.50-10.00)
[2022-11-29 06:11] LABS: Appearance,Urine Cloudy (Clear); Bilirubin,Urine Negative (Negative); Blood,Urine Negative (Negative); Color,Urine Yellow (Yellow); Ketones,Urine Negative (Negative); Nitrite,Urine Negative (Negative); PH, Urine 5.5 (5.0-8.0); Specific Gravity,Urine 1.016 (1.001-1.030)
[2022-11-29 07:50] LABS: Bacteria,Urine None Seen /HPF (None Seen); Calcium Oxalate Crystals,Urine Present /LPF (None Seen)
== END | disposition home or self-care (01) ==
LOC: LABPAT 12:27
PROVIDERS: ATTEND Urology
DX: Z01.812 Encounter for preprocedural laboratory examination (principal); N20.0 Calculus of kidney; R31.29 Other microscopic hematuria
CPT/HCPCS: 80053; 81001; 85025; 87086

== ENCOUNTER 2022-12-08 09:17 | Inpatient (IN) | payer MEDICARE ==
--- NOTE | 2022-12-07 15:30 | P.GSHP ---
History of Present Illness H&P Date: 12/07/22 72 yo female with left partial staghorn calculous with pain and obstruction who comes for left pcnl.. The risks complications and alternatives have been discussed. - Constitutional Constitutional: Denies chills, Denies fever - EENT Eyes: denies blurred vision, denies pain Ears, nose, mouth and throat: Denies headache, Denies sore throat - Cardiovascular Cardiovascular: Denies chest pain, Denies shortness of breath - Respiratory Respiratory: Denies cough, Denies 7 - Gastrointestinal Gastrointestinal: Denies abdominal pain, Denies diarrhea, Denies nausea, Denies vomiting - Genitourinary (Female) Genitourinary: Denies dysuria, Denies hematuria - Genitourinary (Male) Genitourinary: Denies dysuria, Denies hematuria - Musculoskeletal Musculoskeletal: Denies myalgias - Integumentary Integumentary: Denies pruritus, Denies rash - Neurological Neurological: Denies numbness, Denies weakness - Psychiatric Psychiatric: Denies anxiety, Denies depression - Endocrine Endocrine: Denies fatigue, Denies weight change Past Medical History Past Medical History: Asthma, Hyperlipidemia Additional Past Medical History / Comment(s): Hx. of kidney stones, osteopenia History of Any Multi-Drug Resistant Organisms: None Reported Past Surgical History: Cholecystectomy, Hysterectomy, Orthopedic Surgery Additional Past Surgical History / Comment(s): colonoscopy, right wrist surgery, kidney surgery & Lithotripsy. cataracts removed w/lens implants Past Anesthesia/Blood Transfusion Reactions: No Reported Reaction Smoking Status: Never smoker - Past Family History Mother Family Medical History: AFIB Father Additional Family Medical History / Comment(s): heart problems Medications and Allergies Home Medications Medication Instructions Recorded Confirmed Type Ascorbic Acid [Vitamin C] 500 mg PO DAILY 08/09/21 12/05/22 History Atorvastatin [Lipitor] 20 mg PO HS 08/09/21 12/05/22 History Cholecalciferol [Vitamin D3 (25 25 mcg PO DAILY 08/09/21 12/05/22 History Mcg = 1000 Iu)] Citalopram Hydrobromide 40 mg PO DAILY 08/09/21 12/05/22 History [Citalopram HBr] Montelukast [Singulair] 10 mg PO DAILY 08/09/21 12/05/22 History Zinc 50 mg PO DAILY 08/09/21 12/05/22 History Fluticasone/Umeclidin/Vilanter 1 puff INHALATION DAILY 12/06/22 12/06/22 History [Treletrevor Ellipta 200-62.5-25] Allergies Allergy/AdvReac Type Severity Reaction Status Date / Time No Known Allergies Allergy Verified 12/05/22 15:55 Surgical - Exam - General well developed, well nourished, no distress - Eyes normal ocular movement, no icteric - ENT no hearing loss, no congestion - Neck no masses, trachea midline - Respiratory normal respiratory effort, clear to auscultation - Abdomen Abdomen: soft, non tender, no guarding, no rigid, no rebound - Integumentary no rash, no abnormal pigmentation - Neurologic no disoriented, no combative - Psychiatric oriented to time, oriented to person, oriented to place, speech is normal, memory intact Results - Imaging Abdominal x-ray: report reviewed, image reviewed CT scan - abdomen: report reviewed, image reviewed CT scan - pelvis: report reviewed, image reviewed Assessment and Plan Assessment: Impression: Left staghorn calculous.. asthma Plan: pcnl left.
[~2022-12-08 09:17] MED LIST changes: -ALBUTEROL NEB (CONC) 2.5 MG/0.5 ML INHALATION ONE; +AMPICILLIN 1,000 MG in SODIUM CHLORIDE 0.9% 50 ML IVPB PRN; +DEXAMETHASONE SOD PHOSPHATE 4 MG/ML 1 ML VIAL IV ONE; +GENTAMICIN 100 MG in SODIUM CHLORIDE 0.9% 100 ML IVPB PRN; -LACTATED RINGERS 1,000 ML IV SCH; -LIDOCAINE 2% (PF) 20 MG/ML 5 ML VIAL INHALATION ONE; -LIDOCAINE VISCOUS 300 MG/15 ML CUP MUCOUS MEM ONE; +ONDANSETRON 4 MG/2 ML VIAL IVP ONE
[2022-12-08] MEDS ORDERED: LACTATED RINGERS 1,000 ML IV ONE ×3 (09:45→13:17)
--- NOTE | 2022-12-08 10:42 | XR ---
EXAMINATION TYPE: XR KUB DATE OF EXAM: 12/08/2022 HISTORY: Pain Comparison: None.Single KUB is submitted for interpretation. Findings: Right renal calculi: None Visualized. Right ureteral calculi: None Visualized. Left renal calculi: Calculi left kidney measuring about 1.6 x 1.1 cm as well as 1.6 x 2.0 cm with adj acent smaller calculi noted. Left ureteral calculi: None Visualized. Pelvic calcifications: Pelvic phleboliths noted. Bowel gas pattern is unremarkable. No free air. No mass effects. IMPRESSION: 1. Left-sided calculi as discussed above.
[2022-12-08] MEDS ORDERED: IOPAMIDOL-370 100ML BTL MISCELLANE ONE (10:54)
[2022-12-08] MEDS ORDERED: PROPOFOL 10 MG/ML 20 ML VIAL IV ONE (11:25)
[2022-12-08] MEDS ORDERED: PHENYLEPHRINE-0.9% NACL SYG 1,000 MCG/10 ML SYRINGE ONE (11:25)
[2022-12-08] MEDS ORDERED: ROCURONIUM 10 MG/ML (5 ML VIAL) IV ONE (11:25)
[2022-12-08] MEDS ORDERED: LIDOCAINE 2% INJ 20 MG/ML (2 ML VIAL) ONE (11:25)
[2022-12-08] MEDS ORDERED: NEOSTIGMINE 1 MG/ML 10 ML VIAL ONE (11:25)
[2022-12-08] MEDS ORDERED: SUCCINYLCHOLINE CHLORIDE 200 MG/10 ML VIAL IV ONE (11:25)
[2022-12-08] MEDS ORDERED: GLYCOPYRROLATE 0.2 MG/ML 2 ML VIAL ONE (11:25)
[2022-12-08] MEDS ORDERED: MIDAZOLAM 2 MG/2 ML VIAL ONE (11:25)
[2022-12-08] MEDS ORDERED: fentaNYL (PF) 50 MCG/ML 2 ML AMP ONE (11:25)
[2022-12-08] MEDS ORDERED: ONDANSETRON 4 MG/2 ML VIAL IVP PRN (14:00)
[2022-12-08] MEDS ORDERED: ACETAMINOPHEN TAB 325 MG TAB PO PRN (14:00)
[2022-12-08] MEDS ORDERED: MAG HYDROX/AL HYDROX/SIMETH 30 ML CUP PO PRN (14:00)
[2022-12-08] MEDS ORDERED: HYDROmorphone PCA 10 MG/50 ML BAG IV PRN (14:02)
[2022-12-08] MEDS ORDERED: NALOXONE 0.4 MG/ML 1 ML VIAL IV PRN (14:02)
--- NOTE | 2022-12-08 14:07 | P.OP ---
Date of Procedure: 12/08/22 Preoperative Diagnosis: Left renal stones, large greater than 3 cm Postoperative Diagnosis: Same Procedure(s) Performed: Cystoscopy, placement of occluding balloon catheter left, percutaneous nephrostomy (2) (Dr. whitt) percutaneous nephrostolithotomy ultrasound., Placement of 20-Senegalese reentry nephrostomy Anesthesia: ZHOU Surgeon: Gopal Quinones Estimated Blood Loss (ml): 300 Pathology: other (Stone) Condition: stable Disposition: PACU Indications for Procedure: The patient is 72. She is sent to al with a partial staghorn calculus greater than 3 cm in a lower pole collecting system and an anterior middle pole collecting system. She come for percutaneous nephrostolithotomy. Description of Procedure: Patient brought to the operating suite. Given general anesthesia. Placed in a frog position with a sterile prep and drape. Cystoscopy of the Foroblique lens and 22-Senegalese sheath identifies the left ureteral orifice. It is intubated with a 5-Senegalese occluding balloon catheter is secured to a 16-Senegalese Gilmore. The patient is placed in a prone position with care to airways and extremities. Dr. Whitt of radiology performed percutaneous access to the middle pole stone and calyx. I dilate the tract to 30-Senegalese. Introduced the rigid sheath into the collecting system and the stone was broken into small pieces and suction or removed. I then pass the flexible nephroscope into the collecting system and to identify the lower pole calyx was very challenging. I eventually identify very narrowed ostium to a very anterior placed lower pole collecting system. I'm able to intubate of the severe angle of the flexible scope I'm unable to get a laser probe on the stone. I asked Dr. Bowman to come back and we again establish access to the lower pole collecting system. We introduced the rigid sheath to the lower pole and remove the bulk of the stone which is greater than 2 cm. I then introduced a 20-Senegalese reentry nephrostomy tube in the lower pole calyx. I pulled the working sheath out of both collecting system. I secured the tube to the skin. The patient's awake and returned recovery in good condition. Blood loss is about 300 mL. She'll be placed in the hospital postoperatively.
[2022-12-08] MEDS: HYDROmorphone 0.5 MG/0.5 ML SYRINGE IVP PRN ×2 (15:03→15:08)
[2022-12-08] MEDS: IPRATROPIUM 0.5 MG/2.5 ML NEBU INHALATION SCH ×2 (15:34→20:33)
--- NOTE | 2022-12-08 15:46 | FL ---
EXAMINATION TYPE: FL Perc Nephrostomy New Access DATE OF EXAM: 12/08/2022 COMPARISON: 10/24/2022 HISTORY: Left renal calculus Procedure had been discussed with the patient by Dr. Quinones, risks, benefits, alternatives, were dis cussed and any questions were answered. Informed consent was obtained. The patient was in a semipro ne position prepped and draped on the OR table in the usual sterile fashion. Utilizing a 15 cm lengt h Chiba needle a single pass was made into a lower pole posterior calyx under fluoroscopic guidance. An 0.018 guidewire is passed through the needle and there was placement of a 6-Italian catheter sheat h system. There was conversion to a 0.035 system was performed with passage of a guidewire into the ureter utilizing a directional catheter. A second safety wire was placed. Remaining portion of pro cedure performed by . Approximately dap 75.279 of fluoroscopy was provided. IMPRESSION: 1. Successful intraoperative left nephrostomy prior to nephrolithotomy.
[2022-12-08 17:30] LABS: Potassium 5.4 mmol/L (3.5-5.1)
[2022-12-08] MEDS: LACTATED RINGERS 1,000 ML IV SCH (19:58)
[2022-12-08] MEDS: DEXTROSE 5%-0.45% NACL 1,000 ML IV SCH ×2 (19:58→23:32)
[2022-12-08] MEDS: SYMBICORT 80-4.5 MCG INHALER INHALATION SCH (20:33)
[2022-12-08] MEDS: ATORVASTATIN 20 MG TAB PO SCH (22:31)
[2022-12-09] MEDS: LACTATED RINGERS 1,000 ML IV SCH (06:25)
[2022-12-09] MEDS ORDERED: HYDROcodone/APAP 5-325MG 1 EACH TAB PO PRN (06:31)
[2022-12-09] MEDS: DEXTROSE 5%-0.45% NACL 1,000 ML IV SCH ×2 (07:29→18:16)
[2022-12-09] MEDS: SYMBICORT 80-4.5 MCG INHALER INHALATION SCH ×2 (08:59→22:00)
[2022-12-09] MEDS: IPRATROPIUM 0.5 MG/2.5 ML NEBU INHALATION SCH ×4 (08:59→22:00)
[2022-12-09] MEDS: HYDROcodone/APAP 5-325MG 1 EACH TAB PO PRN ×3 (09:38→22:49)
[2022-12-09] MEDS: MONTELUKAST 10 MG TAB PO SCH (09:40)
[2022-12-09] MEDS: CITALOPRAM HYDROBROMIDE 20 MG TAB PO SCH (09:41)
--- NOTE | 2022-12-09 10:14 | XR ---
EXAMINATION TYPE: XR KUB DATE OF EXAM: 12/09/2022 COMPARISON: 12/08/2022 HISTORY: 12/08/2022 TECHNIQUE: One view abdominal series FINDINGS: There are couple punctate calcifications seen within the lateral margin of the left kidney largest me asuring 4 mm. Overlying majority of the large calcifications. The removed. Left-sided nephrostomy ure teral catheter noted. Hypertrophic arthropathy of the hip joints. Calcifications in the pelvis stable . Surgical clips are quadrant. There is an elevated right hemidiaphragm. IMPRESSION: 1. There are couple residual 3 to 4 mm calcifications overlying the left renal outline
[2022-12-09 11:13] LABS: HCT 32.9 % (37.2-46.3); HGB 10.4 g/dL (12.0-15.0); MCH 29.5 pg (27.0-32.0); MCHC 31.6 g/dL (32.0-37.0); MCV 93.5 fL (80.0-97.0); Mean Platelet Volume 10.2 fL (9.5-12.2); NRBC Per 100 WBC 0 /100 WBCS (0.0-0.0); Platelet Count 196 X 10*3/uL (140-440); RBC 3.52 X 10*6/uL (4.10-5.20); RDW 12.1 % (11.5-14.5)
[2022-12-09] MEDS: HYDROmorphone 0.5 MG/0.5 ML SYRINGE IVP PRN ×2 (12:49→20:03)
--- NOTE | 2022-12-09 14:44 | P.PN ---
Subjective Progress Note Date: 12/09/22 Principal diagnosis: POD #1, s/p left percutaneous nephrolithotomy The patient is a 72-year-old female with a past medical history of asthma, hyperlipidemia, and kidney stone. She has a lleft partial staghorn calculus greater than 3 cm int the lower pole collecting systerm and anterior middle pole collecting system. She was symptomatic with pain. On 12/08/22 she underwent a c ystoscopy, placement of occluding balloon catheter left, percutaneous nephrostomy 2) (Dr. smart) percutaneous nephrostolithotomy ultrasound., Placement of 20-Yemeni reentry nephrostomy with Dr. Quinones. She tolerated the procedure well and was placed in the hospital postoperatively for recovery. Objective - Vital Signs Vital signs: Vital Signs Temp 98.1 F 12/09/22 07:20 Pulse 86 12/09/22 12:52 Resp 17 12/09/22 07:20 BP 132/72 12/09/22 07:20 Pulse Ox 95 12/09/22 07:20 FiO2 Intake & Output 12/08/22 12/09/22 12/09/22 18:59 06:59 18:59 Intake Total 1552.5 Output Total 350 420 Balance 1202.5 -420 Weight 83.6 kg Intake: IV 1552.5 Output: Drainage 120 Left Back 120 Urine 50 300 Estimated Blood Loss 300 Other: Voiding Method Indwelling Catheter Indwelling Catheter Toilet # Voids 2 - Exam General: Well developed, well nourished. No acute distress. HEENT: Head is atraumatic, normocephalic. Lungs: Respirations even and nonlabored. On RA Abdomen/GI: Soft, non-distended. Left nephrostomy tube draining dark red urine. : Gilmore catheter in place draining light red urine. Skin: Warm and dry Neurologic: Alert and oriented 3, CN II-XII grossly intact. No focal deficits. Psychiatric: Appropriate mood and affect. - Labs CBC & Chem 7: 12/09/22 06:13 12/08/22 16:29 Labs: Abnormal Lab Results - Last 24 Hours (Table) 12/08/22 12/09/22 Range/Units 16:29 06:13 WBC 14.90 H (4.50-10.00) X 10*3/uL RBC 3.52 L (4.10-5.20) X 10*6/uL Hgb 10.4 L (12.0-15.0) g/dL Hct 32.9 L (37.2-46.3) % MCHC 31.6 L (32.0-37.0) g/dL Potassium 5.4 H (3.5-5.1) mmol/L Chloride 113 H (98-107) mmol/L Carbon Dioxide 21 L (22-30) mmol/L Assessment and Plan Assessment: POD #1 The patient is reporting right shoulder and arm pain which was likely caused by positioning in the OR. She reports mild discomfort to left nephrostomy tube. Her Gilmore catheter and nephrostomy tube are draining dark red urine. She was encouraged to increase her activity and eat so she could be discharged later this afternoon. 1430 The patient is lying in bed. Her daughter is present. Per her RN the patient has not wanted to get up or eat. Her Gilmore catheter has been removed and she is still due to void. The patient states she is hurting too much to go home today. The patient will be kept overnight for pain control. She was instructed to get up to the bathroom to try and void. She was also told to sit in the chair and use her IS and try and eat something. (1) Left renal stone Current Visit: Yes Status: Acute Code(s): N20.0 - CALCULUS OF KIDNEY SNOMED Code(s): 87330653 Plan: - Remove Gilmore catheter - Discontinue SENIOR LINUX ADMINISTRATOR - [place] and Dilaudid prn pain - Increase Activity - Incentive spirometer 10 x hour - Advance to regular diet - KUB to check for residual stone fragments Impression and plan of care have been directed as dictated by the signing physician. Monserrat Hall nurse practitioner acting as scribe for signing physician. Monserrat Hall [facility] Palliative Care/Urology [place] [phone] Email: [email or web address] I have personally seen and examined the patient, reviewed the documentation and agree with the assessment and plan as written. Rafita Langford MD
[2022-12-09] MEDS: ATORVASTATIN 20 MG TAB PO SCH (20:04)
[2022-12-10] MEDS: HYDROmorphone 0.5 MG/0.5 ML SYRINGE IVP PRN ×2 (00:57→11:17)
[2022-12-10] MEDS: LACTATED RINGERS 1,000 ML IV SCH (03:11)
[2022-12-10] MEDS: HYDROcodone/APAP 5-325MG 1 EACH TAB PO PRN ×3 (05:32→22:08)
[2022-12-10] MEDS: DEXTROSE 5%-0.45% NACL 1,000 ML IV SCH ×2 (05:36→17:53)
[2022-12-10] MEDS: IPRATROPIUM 0.5 MG/2.5 ML NEBU INHALATION SCH ×4 (07:49→21:07)
[2022-12-10] MEDS: SYMBICORT 80-4.5 MCG INHALER INHALATION SCH ×2 (07:49→21:07)
[2022-12-10] MEDS: MONTELUKAST 10 MG TAB PO SCH (08:20)
[2022-12-10] MEDS: CITALOPRAM HYDROBROMIDE 20 MG TAB PO SCH (08:20)
--- NOTE | 2022-12-10 14:42 | P.PN ---
Subjective Progress Note Date: 12/10/22 Principal diagnosis: POD #2, s/p left percutaneous nephrolithotomy The patient is a 72-year-old female with a past medical history of asthma, hyperlipidemia, and kidney stone. She has a lleft partial staghorn calculus greater than 3 cm int the lower pole collecting systerm and anterior middle pole collecting system. She was symptomatic with pain. On 12/08/22 she underwent a c ystoscopy, placement of occluding balloon catheter left, percutaneous nephrostomy 2) (Dr. smart) percutaneous nephrostolithotomy ultrasound., Placement of 20-Kenyan reentry nephrostomy with Dr. Quinones. She tolerated the procedure well and was placed in the hospital postoperatively for recovery. She continues to report significant pain at the site of the left nephrostomy tube, as well as the right upper extremity. She has ambulated only to the bathroom. She denies dyspnea. She denies nausea. She is voiding without difficulty but cannot describe the color of her voided urine. Objective - Vital Signs Vital signs: Vital Signs Temp 99.4 F 12/10/22 07:14 Pulse 84 12/10/22 12:18 Resp 16 12/10/22 07:14 BP 129/72 12/10/22 07:14 Pulse Ox 96 12/10/22 07:50 FiO2 Intake & Output 12/09/22 12/10/22 12/10/22 18:59 06:59 18:59 Intake Total 1050 Output Total 0 365 Balance 0 685 Intake: Intake, IV Titration 1050 Amount Dextrose 5%-0.45% NaCl 1, 1050 000 ml @ 100 mls/hr IV . Q10H [facility] Rx#:[id number] Output: Drainage 365 Left Back 365 Urine 0 Other: Voiding Method Toilet Toilet Toilet # Voids 1 1 - Exam General: Well developed, well nourished. No acute distress. HEENT: Head is atraumatic, normocephalic. Lungs: Respirations even and nonlabored. On RA Abdomen/GI: Soft, non-distended. Left nephrostomy tube draining dark blood- tinged urine. Skin: Warm and dry Neurologic: Alert and oriented 3, CN II-XII grossly intact. No focal deficits. Psychiatric: Appropriate mood and affect. - Labs CBC & Chem 7: 12/09/22 06:13 12/08/22 16:29 Assessment and Plan Assessment: POD #2 The patient is reporting right shoulder and arm pain which was likely caused by positioning in the OR. She reports mild discomfort secondary to left nephrostomy tube. (1) Left renal stone Current Visit: Yes Status: Acute Code(s): N20.0 - CALCULUS OF KIDNEY SNOMED Code(s): 38969785 Plan: - [place] and Dilaudid prn pain (increase Dilaudid dose) - Increase Activity - Incentive spirometer 10 x hour
[2022-12-10] MEDS: HYDROmorphone 1 MG/ML 1 ML SYRINGE IVP PRN ×2 (15:16→20:32)
[2022-12-10] MEDS: ATORVASTATIN 20 MG TAB PO SCH (20:33)
[2022-12-11] MEDS: DEXTROSE 5%-0.45% NACL 1,000 ML IV SCH ×2 (02:46→13:11)
[2022-12-11] MEDS: HYDROmorphone 1 MG/ML 1 ML SYRINGE IVP PRN ×6 (02:47→21:46)
[2022-12-11] MEDS: LACTATED RINGERS 1,000 ML IV SCH (08:00)
[2022-12-11] MEDS: HYDROcodone/APAP 5-325MG 1 EACH TAB PO PRN ×2 (08:12→20:15)
[2022-12-11] MEDS: MONTELUKAST 10 MG TAB PO SCH (08:12)
[2022-12-11] MEDS: CITALOPRAM HYDROBROMIDE 20 MG TAB PO SCH (08:12)
--- NOTE | 2022-12-11 09:32 | P.PN ---
Subjective Progress Note Date: 12/11/22 Principal diagnosis: POD #3, s/p left percutaneous nephrolithotomy The patient is a 72-year-old female with a past medical history of asthma, hyperlipidemia, and kidney stone. She has a lleft partial staghorn calculus greater than 3 cm int the lower pole collecting systerm and anterior middle pole collecting system. She was symptomatic with pain. On 12/08/22 she underwent a c ystoscopy, placement of occluding balloon catheter left, percutaneous nephrostomy 2) (Dr. smart) percutaneous nephrostolithotomy ultrasound., Placement of 20-Cameroonian reentry nephrostomy with Dr. Quinones. She tolerated the procedure well and was placed in the hospital postoperatively for recovery. She continues to report significant pain at the site of the left nephrostomy tube, as well as the right upper extremity. She was able to ambulate in the hallway yesterday using a walker. She denies dyspnea. She denies nausea. She has not had a bowel movement. Objective - Vital Signs Vital signs: Vital Signs Temp 98.0 F 12/11/22 07:20 Pulse 87 12/11/22 07:20 Resp 16 12/11/22 07:20 BP 131/78 12/11/22 07:20 Pulse Ox 97 12/11/22 07:20 FiO2 Intake & Output 12/10/22 12/11/22 12/11/22 18:59 06:59 18:59 Intake Total 1200 Output Total 100 600 Balance -100 600 Intake: Intake, IV Titration 1200 Amount Dextrose 5%-0.45% NaCl 1, 1200 000 ml @ 100 mls/hr IV . Q10H [facility] Rx#:[id number] Output: Drainage 100 600 Left Back 100 600 Other: Voiding Method Toilet Toilet # Voids 2 2 - Constitutional General appearance: Present: average body habitus, mild distress - Gastrointestinal General gastrointestinal: Present: soft. Absent: distended, tenderness - Psychiatric Psychiatric: Present: A&O x's 3 - Labs CBC & Chem 7: 12/09/22 06:13 12/08/22 16:29 Assessment and Plan Assessment: POD #3 The patient is reporting right shoulder and arm pain which was likely caused by positioning in the OR. She also reports mild discomfort secondary to left nephrostomy tube. Her symptoms appear to be improving slowly. (1) Left renal stone Current Visit: Yes Status: Acute Code(s): N20.0 - CALCULUS OF KIDNEY SNOM ED Code(s): 45307115 Plan: - [place] and Dilaudid prn pain - Increase Activity - Incentive spirometer 10 x hour
[2022-12-11] MEDS: SYMBICORT 80-4.5 MCG INHALER INHALATION SCH ×2 (10:00→22:04)
[2022-12-11] MEDS: IPRATROPIUM 0.5 MG/2.5 ML NEBU INHALATION SCH ×4 (10:00→22:04)
[2022-12-11 13:08] LABS: Basophils % (A) 0 %; Eosinophils # (A) 0.1 k/uL (0-0.7); Eosinophils % (A) 1 %; HCT 29.6 % (34.0-46.0); HGB 9.8 gm/dL (11.4-16.0); Lymphocytes # (A) 0.7 k/uL (1.0-4.8); Lymphocytes % (A) 8 %; MCH 29.7 pg (25.0-35.0); MCHC 33.2 g/dL (31.0-37.0); MCV 89.3 fL (80.0-100.0); Mean Platelet Volume 7.4; Monocytes # (A) 0.7 k/uL (0-1.0); Monocytes % (A) 8 %; Neutrophils # (A) 7.6 k/uL (1.3-7.7); Neutrophils % (A) 82 %; Platelet Count 166 k/uL (150-450); RBC 3.32 m/uL (3.80-5.40); RDW 12.4 % (11.5-15.5); WBC 9.2 k/uL (3.8-10.6)
[2022-12-11 16:45] LABS: Glucose,Whole Blood 139 mg/dL (70-110)
[2022-12-11] MEDS: ATORVASTATIN 20 MG TAB PO SCH (20:14)
[2022-12-12] MEDS: DEXTROSE 5%-0.45% NACL 1,000 ML IV SCH ×3 (01:09→17:34)
[2022-12-12] MEDS: HYDROmorphone 1 MG/ML 1 ML SYRINGE IVP PRN ×3 (01:09→06:34)
[2022-12-12] MEDS: HYDROcodone/APAP 5-325MG 1 EACH TAB PO PRN ×3 (07:37→22:36)
[2022-12-12] MEDS: CITALOPRAM HYDROBROMIDE 20 MG TAB PO SCH (07:37)
[2022-12-12] MEDS: MONTELUKAST 10 MG TAB PO SCH (07:37)
[2022-12-12] MEDS: SYMBICORT 80-4.5 MCG INHALER INHALATION SCH ×2 (09:27→21:25)
[2022-12-12] MEDS: IPRATROPIUM 0.5 MG/2.5 ML NEBU INHALATION SCH ×4 (09:27→21:25)
[2022-12-12] MEDS: KETOROLAC 15 MG/ML 1 ML VIAL IVP PRN ×3 (10:06→21:59)
--- NOTE | 2022-12-12 10:43 | P.PN ---
Subjective Progress Note Date: 12/12/22 The patient is a 72-year-old female with a past medical history of asthma, hyperlipidemia, and kidney stone. She has a lleft partial staghorn calculus greater than 3 cm int the lower pole collecting systerm and anterior middle pole collecting system. She was symptomatic with pain. On 12/08/22 she underwent a cystoscopy, placement of occluding balloon catheter left, percutaneous nephrostomy 2) (Dr. smart) percutaneous nephrostolithotomy ultrasound., Placement of 20-Montenegrin reentry nephrostomy with Dr. Quinones. She tolerated the procedure well and was placed in the hospital postoperatively for recovery. POD #1 The patient is reporting right shoulder and arm pain which was likely caused by positioning in the OR. She reports mild discomfort to left nephrostomy tube. Her Gilmore catheter and nephrostomy tube are draining dark red urine. She was encouraged to increase her activity and eat so she could be discharged later this afternoon. 1430 The patient is lying in bed. Her daughter is present. Per her RN the patient has not wanted to get up or eat. Her Gilmore catheter has been removed and she is still due to void. The patient states she is hurting too much to go home today. The patient will be kept overnight for pain control. She was instructed to get up to the bathroom to try and void. She was also told to sit in the chair and use her IS and try and eat something. POD #2 She continues to report significant pain at the site of the left nephrostomy tube, as well as the right upper extremity. She has ambulated only to the bathroom. She denies dyspnea. She denies nausea. She is voiding without difficulty but cannot describe the color of her voided urine. POD #3 She continues to report significant pain at the site of the left nephrostomy tube, as well as the right upper extremity. She was able to ambulate in the hallway yesterday using a walker. She denies dyspnea. She denies nausea. She has not had a bowel movement. Her symptoms appear to be improving slowly. Objective - Vital Signs Vital signs: Vital Signs Temp 99.0 F 12/12/22 07:24 Pulse 94 12/12/22 09:44 Resp 17 12/12/22 07:24 BP 103/61 12/12/22 07:24 Pulse Ox 98 12/12/22 09:27 FiO2 Intake & Output 12/11/22 12/12/22 12/12/22 18:59 06:59 18:59 Intake Total 1200 Output Total 425 410 Balance -425 790 Intake: Intake, IV Titration 1200 Amount Dextrose 5%-0.45% NaCl 1, 1200 000 ml @ 100 mls/hr IV . Q10H [facility] Rx#:[id number] Output: Drainage 425 410 Left Back 425 410 Other: Voiding Method Toilet Toilet # Voids 2 1 - Exam General: Well developed, well nourished. No acute distress. HEENT: Head is atraumatic, normocephalic. Lungs: Respirations even and nonlabored. On RA Abdomen/GI: Soft, non-distended. Left neph tube insertion site with mild bruising : Left nephrostomy tube draining blood tined urine. Skin: Warm and dry Neurologic: Alert and oriented 3, CN II-XII grossly intact. No focal deficits. Psychiatric: Appropriate mood and affect. - Labs CBC & Chem 7: 12/11/22 12:54 12/08/22 16:29 Labs: Abnormal Lab Results - Last 24 Hours (Table) 12/11/22 12/11/22 Range/Units 12:54 16:43 RBC 3.32 L (3.80-5.40) m/uL Hgb 9.8 L (11.4-16.0) gm/dL Hct 29.6 L (34.0-46.0) % Lymphocytes # 0.7 L (1.0-4.8) k/uL POC Glucose (mg/dL) 139 H (70-110) mg/dL Assessment and Plan Assessment: POD #4 The patient is sitting up in bed. Her daughter is at the bedside. She reports having significant pain to her left nephrostomy tube site. The surrounding area is mildly firm and bruised, which is expected given the complexity of her surgery. Her pain in her right arm and shoulder due to positioning in the OR has improved significantly. She is able to void without difficulty. (1) Left renal stone Current Visit: Yes Status: Acute Code(s): N20.0 - CALCULUS OF KIDNEY SNOMED Code(s): 67919437 Plan: - Continue [place] and Dilaudid prn pain - Add Toradol Q6H prn - Increase Activity - Incentive spirometer 10 x hour - Nephrostogram today to check for patency/leaks - Possible removal of nephrostomy tube tomorrow, pending nephrostogram results Impression and plan of care have been directed as dictated by the signing physician. Monserrat Hall nurse practitioner acting as scribe for signing physician. Monserrat Hall [facility]- Palliative Care/Urology [facility] [phone] Email: [email or web address] the patient had a difficult pcnl left last week requiring two tubes. SHe has had a a slow post operative course including left flank pain and right shoulder pain. She is slowly getting better I will get a n gram today to see if I can get the n tube out which would help with her pain.Gopal Quinones Md
--- NOTE | 2022-12-12 11:13 | XR ---
Exam: Abdomen one view Date: 12/12/2022 Comparison: 12/09/2022 Technique: Single portable view of the abdomen was obtained after 50 mL of Isovue-370 was injected in to the left nephrostomy tube. History: Check patency. Findings: There is a left-sided nephroureteral catheter which terminates outside the field of view. There is co ntrast opacification of the left renal collecting system. There is no hydronephrosis. The urinary france dder and distal ureter are not included in the [id number]. There is some contrast leakage, likely external to the patient. There are a few surgical clips in the right upper quadrant, compatible with prior cholecystectomy. Th ere are no dilated loops of bowel. There are no suspicious calcific abnormalities. The visualized charity g bases are clear. Impression: No hydronephrosis. Please note that the urinary bladder and distal ureter are not included in the fie ld-of-view.
[2022-12-12] MEDS: polyethylene glycoL 3350 17 GM POWD.PACK PO PRN (12:42)
[2022-12-12] MEDS: ATORVASTATIN 20 MG TAB PO SCH (21:59)
[2022-12-13] MEDS: KETOROLAC 15 MG/ML 1 ML VIAL IVP PRN ×3 (05:04→18:15)
[2022-12-13] MEDS: DEXTROSE 5%-0.45% NACL 1,000 ML IV SCH ×2 (05:16→15:24)
[2022-12-13] MEDS: HYDROmorphone 1 MG/ML 1 ML SYRINGE IVP PRN (07:40)
--- NOTE | 2022-12-13 08:43 | P.PN ---
Subjective Progress Note Date: 12/13/22 The patient is a 72-year-old female with a past medical history of asthma, hyperlipidemia, and kidney stone. She has a lleft partial staghorn calculus greater than 3 cm int the lower pole collecting systerm and anterior middle pole collecting system. She was symptomatic with pain. On 12/08/22 she underwent a cystoscopy, placement of occluding balloon catheter left, percutaneous nephrostomy 2) (Dr. smart) percutaneous nephrostolithotomy ultrasound., Placement of 20-[place] reentry nephrostomy with Dr. Deluna. She tolerated the procedure well and was placed in the hospital postoperatively for recovery. POD #1 The patient is reporting right shoulder and arm pain which was likely caused by positioning in the OR. She reports mild discomfort to left nephrostomy tube. Her Gil[place] catheter and nephrostomy tube are draining dark red urine. She was encouraged to increase her activity and eat so she could be discharged later this afternoon. 1430 The patient is lying in bed. Her daughter is present. Per her RN the patient has not wanted to get up or eat. Her Gil[place] catheter has been removed and she is still due to void. The patient states she is hurting too much to go home today. The patient will be kept overnight for pain control. She was instructed to get up to the bathroom to try and void. She was also told to sit in the chair and use her IS and try and eat something. POD #2 She continues to report significant pain at the site of the left nephrostomy tube, as well as the right upper extremity. She has ambulated only to the bathroom. She denies dyspnea. She denies nausea. She is voiding without difficulty but cannot describe the color of her voided urine. POD #3 She continues to report significant pain at the site of the left nephrostomy tube, as well as the right upper extremity. She was able to ambulate in the hallway yesterday using a walker. She denies dyspnea. She denies nausea. She has not had a bowel movement. Her symptoms appear to be improving slowly. POD #4 The patient is sitting up in bed. Her daughter is at the bedside. She reports having significant pain to her left nephrostomy tube site. The surrounding area is mildly firm and bruised, which is expected given the complexity of her surgery. Her pain in her right arm and shoulder due to po sitioning in the OR has improved significantly. She is able to void without difficulty. Nephrostogram ordered for today to check for patency/leaks. Objective - Vital Signs Vital signs: Vital Signs Temp 98.3 F 12/13/22 07:15 Pulse 86 12/13/22 07:15 Resp 20 12/13/22 07:15 BP 185/87 12/13/22 07:15 Pulse Ox 95 12/13/22 07:15 FiO2 Intake & Output 12/12/22 12/13/22 12/13/22 18:59 06:59 18:59 Output Total 100 Balance -100 Output: Drainage 100 Left Back 100 Other: Voiding Method Toilet # Voids 3 1 - Exam General: Well developed, well nourished. No acute distress. HEENT: Head is atraumatic, normocephalic. Lungs: Respirations even and nonlabored. On RA Abdomen/GI: Soft, non-distended. Left neph tube insertion site with mild bruising : Left nephrostomy tube draining blood tined urine. Skin: Warm and dry Neurologic: Alert and oriented 3, CN II-XII grossly intact. No focal deficits. Psychiatric: Appropriate mood and affect. - Labs CBC & Chem 7: 12/11/22 12:54 12/08/22 16:29 Assessment and Plan Assessment: POD #5 The patient is sitting up on the side of the bed eating breakfast. She states her pain is better controlled with the addition of Toradol to her regimen. Dr. Deluna removed her nephrostomy tube at the bedside and dressed he site with an abd pad. Urine leakage from the site is expected. (1) Left renal stone Current Visit: Yes Status: Acute Code(s): N20.0 - CALCULUS OF KIDNEY SNOMED Code(s): 22936243 Plan: - Continue current pain regimen - Increase Activity - Incentive spirometer 10 x hour - Change dressing as needed - Anticipate discharge in 24-48 hours Impression and plan of care have been directed as dictated by the signing physician. Monserrat Hall nurse practitioner acting as scribe for signing physician. Monserrat H[facility] Palliative Care/Urology [facility] [id number] Email: [email or web address] I have evaluated and examined the patient. I concur with the above note. Gopal Deluna MD
[2022-12-13] MEDS: MONTELUKAST 10 MG TAB PO SCH (09:04)
[2022-12-13] MEDS: CITALOPRAM HYDROBROMIDE 20 MG TAB PO SCH (09:04)
[2022-12-13] MEDS: polyethylene glycoL 3350 17 GM POWD.PACK PO PRN (09:23)
[2022-12-13] MEDS: SYMBICORT 80-4.5 MCG INHALER INHALATION SCH ×2 (10:12→20:15)
[2022-12-13] MEDS: IPRATROPIUM 0.5 MG/2.5 ML NEBU INHALATION SCH ×4 (10:14→20:15)
[2022-12-13] MEDS: HYDROcodone/APAP 5-325MG 1 EACH TAB PO PRN ×3 (15:04→23:11)
[2022-12-13] MEDS: ATORVASTATIN 20 MG TAB PO SCH (19:50)
[2022-12-14] MEDS: DEXTROSE 5%-0.45% NACL 1,000 ML IV SCH (00:14)
[2022-12-14] MEDS ORDERED: bisacodyL 10 MG SUPP RECTAL STA (08:11)
[2022-12-14] MEDS: CITALOPRAM HYDROBROMIDE 20 MG TAB PO SCH (08:13)
[2022-12-14] MEDS: MONTELUKAST 10 MG TAB PO SCH (08:13)
[2022-12-14] MEDS: KETOROLAC 15 MG/ML 1 ML VIAL IVP PRN ×2 (08:13→19:53)
[2022-12-14] MEDS: IPRATROPIUM 0.5 MG/2.5 ML NEBU INHALATION SCH ×4 (08:22→21:40)
[2022-12-14] MEDS: SYMBICORT 80-4.5 MCG INHALER INHALATION SCH ×2 (08:22→21:40)
--- NOTE | 2022-12-14 09:02 | P.PN ---
Subjective Progress Note Date: 12/14/22 The patient is a 72-year-old female with a past medical history of asthma, hyperlipidemia, and kidney stone. She has a lleft partial staghorn calculus greater than 3 cm int the lower pole collecting systerm and anterior middle pole collecting system. She was symptomatic with pain. On 12/08/22 she underwent a cystoscopy, placement of occluding balloon catheter left, percutaneous nephrostomy 2) (Dr. smart) percutaneous nephrostolithotomy ultrasound., Placement of 20-[place] reentry nephrostomy with Dr. Quinones. She tolerated the procedure well and was placed in the hospital postoperatively for recovery. POD #1 The patient is reporting right shoulder and arm pain which was likely caused by positioning in the OR. She reports mild discomfort to left nephrostomy tube. Her Gilmore catheter and nephrostomy tube are draining dark red urine. She was encouraged to increase her activity and eat so she could be discharged later this afternoon. 1430 The patient is lying in bed. Her daughter is present. Per her RN the patient has not wanted to get up or eat. Her Gilmore catheter has been removed and she is still due to void. The patient states she is hurting too much to go home today. The patient will be kept overnight for pain control. She was instructed to get up to the bathroom to try and void. She was also told to sit in the chair and use her IS and try and eat something. POD #2 She continues to report significant pain at the site of the left nephrostomy tube, as well as the right upper extremity. She has ambulated only to the bathroom. She denies dyspnea. She denies nausea. She is voiding without difficulty but cannot describe the color of her voided urine. POD #3 She continues to report significant pain at the site of the left nephrostomy tube, as well as the right upper extremity. She was able to ambulate in the hallway yesterday using a walker. She denies dyspnea. She denies nausea. She has not had a bowel movement. Her symptoms appear to be improving slowly. POD #4 The patient is sitting up in bed. Her daughter is at the bedside. She reports having significant pain to her left nephrostomy tube site. The surrounding area is mildly firm and bruised, which is expected given the complexity of her surgery. Her pain in her right arm and shoulder due to po sitioning in the OR has improved significantly. She is able to void without difficulty. Nephrostogram ordered for today to check for patency/leaks. POD #5 The patient is sitting up on the side of the bed eating breakfast. She states her pain is better controlled with the addition of Toradol to her regimen. Dr. Quinones removed her nephrostomy tube at the bedside and dressed he site with an abd pad. Urine leakage from the site is expected. The patient is status post left percutaneous nephrostolithotomy. This was a difficult procedure. She is slowly recuperating. The nephrostomy tube was rem pebbles yesterday. She is feeling better. We anticipate discharge home tomorrow. Gopal Quinones M.D. Objective - Vital Signs Vital signs: Vital Signs Temp 98.6 F 12/14/ 07:25 Pulse 88 12/14/22 08:35 Resp 16 12/14/22 07:25 BP 152/84 12/14/22 07:25 Pulse Ox 98 12/14/22 07:25 FiO2 Intake & Output 12/13/22 12/14/22 12/14/22 18:59 06:59 18:59 Other: Voiding Method Toilet Toilet Toilet # Voids 1 3 - Exam General: Well developed, well nourished. No acute distress. HEENT: Head is atraumatic, normocephalic. Lungs: Respirations even and nonlabored. On RA Abdomen/GI: Soft, non-distended. Left neph tube insertion site with mild bruising and tenderness Skin: Warm, diaphoretic Neurologic: Alert and oriented 3, CN II-XII grossly intact. No focal deficits. Psychiatric: Appropriate mood and affect. - Labs CBC & Chem 7: 04/16/ 12:54 04/ 16:29 Assessment and Plan Assessment: POD #6 The patient reports her pain is significantly better today. She is tolerating a regular diet and able to ambulate in her room. Her leakage from her nephrostomy tube has slowed down significantly. Her dressing is CDI. She feels shaky, warm, and is diaphoretic this morning. She is afebrile. She is constipated and has not had a BM since surgery despite the addition of Miralax. She agreed to a Dulcolax suppository this morning. Her nurse is aware. The patient lives alone and does not feel as if she is ready to go home. (1) Left renal stone Current Visit: Yes Status: Acute Code(s): N20.0 - CALCULUS OF KIDNEY SNOMED Code(s): 10516163 Plan: - Continue [place] and Toradol prn - Discontinue Dilaudid - Dulcolax suppository today - Increase Activity - Incentive spirometer 10 x hour - Change dressing as needed - Anticipate discharge in 24-48 hours Impression and plan of care have been directed as dictated by the signing physician. Monserrat Hall nurse practitioner acting as scribe for signing physician. Monserrat Hall [facility] Palliative Care/Urology [place] [phone] Email: [email or web address]
[2022-12-14] MEDS: HYDROcodone/APAP 5-325MG 1 EACH TAB PO PRN ×2 (17:52→22:12)
[2022-12-14] MEDS: ATORVASTATIN 20 MG TAB PO SCH (20:21)
[2022-12-15 02:35] VITALS: RESP 17
[2022-12-15] MEDS: HYDROcodone/APAP 5-325MG 1 EACH TAB PO PRN ×2 (03:03→08:24)
--- NOTE | 2022-12-15 07:57 | P.DS ---
Providers Date of admission: 12/12/22 07:56 Expected date of discharge: 12/15/22 Attending physician: Gopal Quinones Primary care physician: Ze Martinez - Discharge Diagnosis(es) (1) Left renal stone Current Visit: Yes Status: Acute Hospital Course: The patient is a 72-year-old female with a past medical history of asthma, hyperlipidemia, and kidney stone. She has a lleft partial staghorn calculus greater than 3 cm int the lower pole collecting systerm and anterior middle pole collecting system. She was symptomatic with pain. On 12/08/22 she underwent a cystoscopy, placement of occluding balloon catheter left, percutaneous nephrostomy 2) (Dr. smart) percutaneous nephrostolithotomy ultrasound., Placement of 20-[place] reentry nephrostomy with Dr. Quinones. She tolerated the procedure well and was placed in the hospital postoperatively for recovery. POD #1 The patient is reporting right shoulder and arm pain which was likely caused by positioning in the OR. She reports mild discomfort to left nephrostomy tube. Her Gilmore catheter and nephrostomy tube are draining dark red urine. She was encouraged to increase her activity and eat so she could be discharged later this afternoon. 1430 The patient is lying in bed. Her daughter is present. Per her RN the patient has not wanted to get up or eat. Her Gilmore catheter has been removed and she is still due to void. The patient states she is hurting too much to go home today. The patient will be kept overnight for pain control. She was instructed to get up to the bathroom to try and void. She was also told to sit in the chair and use her IS and try and eat something. POD #2 She continues to report significant pain at the site of the left nephrostomy tube, as well as the right upper extremity. She has ambulated only to the bathroom. She denies dyspnea. She denies nausea. She is voiding without difficulty but cannot describe the color of her voided urine. POD #3 She continues to report significant pain at the site of the left nephrostomy tube, as well as the right upper extremity. She was able to ambulate in the hallway yesterday using a walker. She denies dyspnea. She denies nausea. She has not had a bowel movement. Her symptoms appear to be improving slowly. POD #4 The patient reports having significant pain to her left nephrostomy tube site. The surrounding area is mildly firm and bruised, which is expected given the complexity of her surgery. Her pain in her right arm and shoulder due to positioning in the OR has improved significantly. She is able to void without difficulty. Nephrostogram ordered for today to check for patency/leaks. POD #5 The patient states her pain is better controlled with the addition of Toradol to her regimen. Dr. Quinones removed her nephrostomy tube at the bedside and dressed he site with an abd pad. Urine leakage from the site is expected. POD #6 The patient reports her pain is significantly better today. She is tolerating a regular diet and able to ambulate in her room. Her leakage from her nephrostomy tube has slowed down significantly. Her dressing is CDI. She feels shaky, warm, and is diaphoretic this morning. She is afebrile. She is constipated and has not had a BM since surgery despite the addition of Miralax. She agreed to a Dulcolax suppository this morning. Her nurse is aware. The patient lives alone and does not feel as if she is ready to go home. POD #7 The patient reports her pain has improved. She is afebrile. She has some upper and lower extremity edema that will improve with increased activity. Her right flank edema and bruising have improved. Her dressing is CDI. She will be discharged home with [place] and Toradol for pain. She is to follow up with Dr. Quinones in one week. Impression and plan of care have been directed as dictated by the signing physician. Monserrat Hall nurse practitioner acting as scribe for signing physician. Monserrat Hall [facility] Palliative Care/Urology [place] [phone] Email: [email or web address] The patient has been examined and interviewed by me.. We answered multiple questions. I concur with the above note Gopal Quinones MD Patient Condition at Discharge: Good Plan - Discharge Summary Discharge Rx Participant: Yes New Discharge Prescriptions: New HYDROcodone/APAP 5-325MG [[place] 5-325] 1 - 2 tab PO Q6HR PRN #10 tab PRN Reason: Pain Ketorolac [Toradol] 10 mg PO Q6HR PRN #12 tab PRN Reason: Pain Continue Ascorbic Acid [Vitamin C] 500 mg PO DAILY Fluticasone/Umeclidin/Vilanter [Trelegy Ellipta 200-62.5-25] 1 puff INHALATION DAILY Zinc 50 mg PO DAILY Cholecalciferol [Vitamin D3 (25 Mcg = 1000 Iu)] 25 mcg PO DAILY Montelukast [Singulair] 10 mg PO DAILY Citalopram Hydrobromide [Citalopram HBr] 40 mg PO DAILY Atorvastatin [Lipitor] 20 mg PO HS Discharge Medication List Ascorbic Acid [Vitamin C] 500 mg PO DAILY 08/09/21 [History] Atorvastatin [Lipitor] 20 mg PO HS 08/09/21 [History] Cholecalciferol [Vitamin D3 (25 Mcg = 1000 Iu)] 25 mcg PO DAILY 08/09/21 [History] Citalopram Hydrobromide [Citalopram HBr] 40 mg PO DAILY 08/09/21 [History] Montelukast [Singulair] 10 mg PO DAILY 08/09/21 [History] Zinc 50 mg PO DAILY 08/09/21 [History] Fluticasone/Umeclidin/Vilanter [Trelegy Ellipta 200-62.5-25] 1 puff INHALATION DAILY 12/06/22 [History] HYDROcodone/APAP 5-325MG [[place] 5-325] 1 - 2 tab PO Q6HR PRN #10 tab 12/09/22 [Rx] Ketorolac [Toradol] 10 mg PO Q6HR PRN #12 tab 12/15/22 [Rx] Follow up Appointment(s)/Referral(s): Gopal Quinones MD [STAFF PHYSICIAN] - 1 Week Activity/Diet/Wound Care/Special Instructions: - Drink plenty of fluids - Diet as tolerated - Avoid strenuous activity - Blood in the urine is normal - Swelling in extremities will improve with increased activity Discharge Disposition: HOME SELF-CARE
[2022-12-15 07:58] VITALS: BP 163/86; TEMP 97.8
[2022-12-15] MEDS: MONTELUKAST 10 MG TAB PO SCH (08:25)
[2022-12-15] MEDS: CITALOPRAM HYDROBROMIDE 20 MG TAB PO SCH (08:25)
[2022-12-15] MEDS: SYMBICORT 80-4.5 MCG INHALER INHALATION SCH (08:49)
[2022-12-15] MEDS: IPRATROPIUM 0.5 MG/2.5 ML NEBU INHALATION SCH ×2 (08:49→12:05)
[2022-12-15 12:14] VITALS: PULSE 84
== END 2022-12-15 13:43 | disposition home or self-care (01) | DRG 661 ==
LOC: OR 09:17 → 4SSUR 14:08 → OR 12-09 07:00 → OBSVTOIN 12-12 07:56
PROVIDERS: ADMIT Urology; ATTEND Urology
PROC: 0TC13ZZ Extirpation of Matter from Left Kidney, Percutaneous Approach (ICD-10-PCS; principal; 2022-12-08 11:30)
PROC: 0T778ZZ Dilation of Left Ureter, Via Natural or Artificial Opening Endoscopic (ICD-10-PCS; 2022-12-08 11:30)
DX: N20.0 Calculus of kidney (principal); E78.5 Hyperlipidemia, unspecified; J45.909 Unspecified asthma, uncomplicated; K59.00 Constipation, unspecified; M85.80 Other specified disorders of bone density and structure, unspecified site; Z79.899 Other long term (current) drug therapy; Z87.442 Personal history of urinary calculi
CPT/HCPCS: 50432; 74018; 80051; 82365; 82565; 85025; 85027; 86850; 86900; 86901; 94640; 94760

== ENCOUNTER 2023-08-29 22:45 | Inpatient (IN) | payer MEDICARE ==
--- NOTE | 2023-08-29 22:58 | ED ---
Abdominal Pain HPI - General Source: patient Mode of arrival: ambulatory Limitations: no limitations <Eduard Ricketts - Last Filed: 08/30/23 04:33> <Power Dick - Last Filed: 08/30/23 04:55> - General Stated Complaint: ABD PAIN LEFT SIDE Time Seen by Provider: 08/29/23 22:58 - History of Present Illness Initial Comments: 73 year old female presenting to the ED with a chief complaint of abdominal pain. States since 6 PM today has had left abdominal pain radiating to her lower abdomen. Associated chills and nausea. States has history of kidney stones and notes pain is similar to history. (Eduard Ricketts) - Related Data Home Medications Medication Instructions Recorded Confirmed Ascorbic Acid [Vitamin C] 500 mg PO DAILY 08/09/21 12/08/22 Atorvastatin [Lipitor] 20 mg PO HS 08/09/21 12/08/22 Cholecalciferol [Vitamin D3 (25 25 mcg PO DAILY 08/09/21 12/08/22 Mcg = 1000 Iu)] Citalopram Hydrobromide 40 mg PO DAILY 08/09/21 12/05/22 [Citalopram HBr] Montelukast [Singulair] 10 mg PO DAILY 08/09/21 12/05/22 Zinc 50 mg PO DAILY 08/09/21 12/08/22 Fluticasone/Umeclidin/Vilanter 1 puff INHALATION DAILY 12/06/22 12/08/22 [Trelegy Ellipta 200-62.5-25] Previous Rx's Medication Instructions Recorded HYDROcodone/APAP 5-325MG [[place] 1 - 2 tab PO Q6HR PRN #10 tab 12/09/22 5-325] Ketorolac [Toradol] 10 mg PO Q6HR PRN #12 tab 12/15/22 Allergies Allergy/AdvReac Type Severity Reaction Status Date / Time No Known Allergies Allergy Verified 12/08/22 09:47 Review of Systems ROS Other: All systems not noted in ROS Statement are negative. <Eduard Ricketts - Last Filed: 08/30/23 04:33> ROS Other: All systems not noted in ROS Statement are negative. <Power Dick - Last Filed: 08/30/23 04:55> ROS Statement: Those systems with pertinent positive or pertinent negative responses have been documented in the HPI. Past Medical History Past Medical History: Asthma, Hyperlipidemia Additional Past Medical History / Comment(s): current prednison, bronchial problems greater than a month, Hx. of kidney stones, osteopenia, vitamin D deficiency History of Any Multi-Drug Resistant Organisms: None Reported Past Surgical History: Cholecystectomy, Hysterectomy Additional Past Surgical History / Comment(s): colonoscopy, wrist surgery, kidney surgery & Lithotripsy. Past Anesthesia/Blood Transfusion Reactions: No Reported Reaction Past Psychological History: No Psychological Hx Reported Smoking Status: Never smoker Past Alcohol Use History: Occasional Past Drug Use History: None Reported - Past Family History Mother Family Medical History: AFIB Father Additional Family Medical History / Comment(s): heart problems <Eduard Ricketts - Last Filed: 08/30/23 04:33> General Exam Limitations: no limitations General appearance: alert, in no apparent distress Respiratory exam: Present: normal lung sounds bilaterally Cardiovascular Exam: Present: tachycardia GI/Abdominal exam: Present: soft (Left CVA tenderness to palpation and diffuse abdominal tenderness outpatient. No rebound guarding or rigidity.) Neurological exam: Present: alert, oriented X3 Skin exam: Present: warm, dry <Eduard Ricketts - Last Filed: 08/30/23 04:33> - General Exam Comments Initial Comments: Visual Physical Exam Vital signs reviewed General: Well-appearing, nontoxic, no acute distress. Head: Normocephalic, atraumatic Eyes: PERRLA, EOMI ENT: Airway patent Chest: Nonlabored breathing Skin: No visual rash, normal skin tone Neuro: Alert and oriented 3 Musculoskeletal: No gross abnormalities (Eduard Ricketts) Course Vital Signs 08/29/23 08/30/23 22:53 04:31 Temperature 98.9 F Pulse Rate 105 H 71 Respiratory 18 18 Rate Blood Pressure 148/84 127/75 O2 Sat by Pulse 94 L 95 Oximetry Medical Decision Making - Lab Data Result diagrams: 08/29/23 23:17 08/29/23 23:21 <Eduard Ricketts - Last Filed: 08/30/23 04:33> - Lab Data Result diagrams: 08/29/23 23:17 08/29/23 23:21 <Power Dick - Last Filed: 08/30/23 04:55> - Medical Decision Making Was pt. sent in by a medical professional or institution (RAMSES Sánchez, CERTIFIED NURSES AIDE, urgent care, hospital, or skilled nursing...) When possible be specific @ -no Did you speak to anyone other than the patient for history (EMS, parent, family, police, friend...)? What history was obtained from this source @ -No Did you review nursing and triage notes (agree or disagree)? Why? @ -I reviewed and agree with nursing and triage notes Were old charts reviewed (outside hosp., previous admission, EMS record, old EKG, old radiological studies, urgent care reports/EKG's, skilled nursing records)? Report findings @ -No old charts were reviewed Differential Diagnosis (chest pain, altered mental status, abdominal pain women, abdominal pain men, vaginal bleeding, weakness, fever, dyspnea, syncope, headache, dizziness, GI bleed, back pain, seizure, CVA, palpatations, mental health, musculoskeletal)? @ -Differential Abdominal Pain Women: Appendicitis, Cholecystitis, diverticulosis, ischemic bowel, pancreatitis, hepatitis, UTI, gastroenteritis, AAA, incarcerated hernia, bowel obstruction, constipation, inflammatory bowel, hepatitis, peptic ulcer disease, splenic infarction, perforated viscus, vulvitis, ovarian torsion, PID, kidney stone, placenta abruption, this is not meant to be an all-inclusive list EKG interpreted by me (3pts min.). @ -none X-rays interpreted by me (1pt min.). @ -None done CT interpreted by me (1pt min.). @ -pending U/S interpreted by me (1pt. min.). @ -None done What testing was considered but not performed or refused? (CT, X-rays, U/S, labs)? Why? @ -None What meds were considered but not given or refused? Why? @ -None Did you discuss the management of the patient with other professionals (professionals i.e. RAMSES Sánchez, CERTIFIED NURSES AIDE, lab, RT, psych nurse, social work manager, grocery bagger, teacher, antisubmarine weapons officer, caser in)? Give summary @ -No Was smoking cessation discussed for >3mins.? @ -No Was critical care preformed (if so, how long)? @ -No Were there social determinants of health that impacted care today? How? (Homelessness, low income, unemployed, alcoholism, drug addiction, transportation, low edu. Level, literacy, decrease access to med. care, long term, rehab)? @ -No Was there de-escalation of care discussed even if they declined (Discuss DNR or withdrawal of care, Hospice)? DNR status @ -No What co-morbidities impacted this encounter? (DM, HTN, Smoking, COPD, CAD, Cancer, CVA, ARF, Chemo, Hep., AIDS, mental health diagnosis, sleep apnea, morbid obesity)? @ -None Was patient admitted / discharged? Hospital course, mention meds given and route, prescriptions, significant lab abnormalities, going to OR and other pertinent info. @ -Pending 73 year old female presenting to the ED with acute onset of left flank pain radiating to the abdomen reminiscent to history of kidney stones. Laboratory studies reviewed. CBC significant for an elevated white blood cell count 11.5. Neutrophils elevated at 9.0. Chemistry panel largely unremarkable. Urine at this time is pending. CAT scan at this time is also pending. Patient signed out to my attending physician Dr. Dick for further management/disposition. (Eduard Ricketts) CT showing multiple obstructing renal calculi on the left with hydroureter and hydronephrosis. Radiology interpretation pending at this time. Patient will be admitted for symptom control. Admitted to internal medicine with neurology on consult. (Power Dick) - Lab Data Lab Results 08/29/23 08/29/23 08/30/23 Range/Units 23:17 23:21 03:17 WBC 11.5 H (3.8-10.6) k/uL RBC 5.46 H (3.80-5.40) m/uL Hgb 15.9 (11.4-16.0) gm/dL Hct 47.3 H (34.0-46.0) % MCV 86.7 (80.0-100.0) fL MCH 29.1 (25.0-35.0) pg MCHC 33.5 (31.0-37.0) g/dL RDW 12.1 (11.5-15.5) % Plt Count 302 (150-450) k/uL MPV 7.3 Neutrophils % 78 % Lymphocytes % 14 % Monocytes % 6 % Eosinophils % 0 % Basophils % 0 % Neutrophils # 9.0 H (1.3-7.7) k/uL Lymphocytes # 1.6 (1.0-4.8) k/uL Monocytes # 0.7 (0-1.0) k/uL Eosinophils # 0.0 (0-0.7) k/uL Basophils # 0.0 (0-0.2) k/uL Sodium 138 (137-145) mmol/L Potassium 3.9 (3.5-5.1) mmol/L Chloride 104 (98-107) mmol/L Carbon Dioxide 22 (22-30) mmol/L Anion Gap 12 mmol/L BUN 16 (7-17) mg/dL Creatinine 0.91 (0.52-1.04) mg/dL Est GFR (CKD-EPI)AfAm 71 (>60 ml/min/1.73 sqM) Est GFR (CKD-EPI)NonAf 62 (>60 ml/min/1.73 sqM) Glucose 148 H (74-99) mg/dL Calcium 9.6 (8.4-10.2) mg/dL Total Bilirubin 0.9 (0.2-1.3) mg/dL AST 28 (14-36) U/L ALT 20 (4-34) U/L Alkaline Phosphatase 142 H (38-126) U/L Total Protein 7.3 (6.3-8.2) g/dL Albumin 4.2 (3.5-5.0) g/dL Amylase 78 (30-110) U/L Lipase 94 (23-300) U/L Urine Color Yellow Urine Appearance Cloudy H (Clear) Urine pH 5.5 (5.0-8.0) Ur Specific [place] 1.020 (1.001-1.035) Urine Protein 1+ H (Negative) Urine Glucose (UA) Negative (Negative) Urine Ketones Negative (Negative) Urine Blood Large H (Negative) Urine Nitrite Negative (Negative) Urine Bilirubin Negative (Negative) Urine Urobilinogen <2.0 (<2.0) mg/dL Ur Leukocyte Esterase Small H (Negative) Urine RBC >182 H (0-5) /hpf Urine WBC 14 H (0-5) /hpf Ur Squamous Epith Cells 1 (0-4) /hpf Calcium Oxalate Crystal Moderate H (None) /hpf Urine Bacteria Rare H (None) /hpf Hyaline Casts 35 H (0-2) /lpf Urine Mucus Moderate H (None) /hpf Disposition <Eduard Ricketts - Last Filed: 08/30/23 04:33> Is patient prescribed a controlled substance at d/c from ED?: No Time of Disposition: 04:55 <Power Dick - Last Filed: 08/30/23 04:55> Clinical Impression: Calculus of kidney, Hydronephrosis with ureteral calculus Disposition: ADMITTED IP TO THIS HOSP Condition: Stable Referrals: Ze Martinez DO [Primary Care Provider] - 1-2 days
[2023-08-29 23:30] LABS: Basophils % (A) 0 %; Eosinophils % (A) 0 %; HCT 47.3 % (34.0-46.0); HGB 15.9 gm/dL (11.4-16.0); Lymphocytes # (A) 1.6 k/uL (1.0-4.8); Lymphocytes % (A) 14 %; MCH 29.1 pg (25.0-35.0); MCHC 33.5 g/dL (31.0-37.0); MCV 86.7 fL (80.0-100.0); Mean Platelet Volume 7.3; Monocytes # (A) 0.7 k/uL (0-1.0); Monocytes % (A) 6 %; Neutrophils % (A) 78 %; Platelet Count 302 k/uL (150-450); RBC 5.46 m/uL (3.80-5.40); RDW 12.1 % (11.5-15.5); WBC 11.5 k/uL (3.8-10.6)
[2023-08-29 23:59] LABS: ALT 20 U/L (4-34); AST 28 U/L (14-36); African American GFR (CKD) 71 (>60 ml/min/1.73 sqM); Albumin 4.2 g/dL (3.5-5.0); Alkaline Phosphatase 142 U/L (38-126); Amylase 78 U/L (30-110); Anion Gap 12 mmol/L; Blood Urea Nitrogen 16 mg/dL (7-17); Calcium 9.6 mg/dL (8.4-10.2); Carbon Dioxide 22 mmol/L (22-30); Chloride 104 mmol/L (98-107); Glucose 148 mg/dL (74-99); Lipase 94 U/L (23-300); Non-African American GFR(CKD) 62 (>60 ml/min/1.73 sqM); Potassium 3.9 mmol/L (3.5-5.1); Sodium 138 mmol/L (137-145); Total Bilirubin 0.9 mg/dL (0.2-1.3); Total Protein 7.3 g/dL (6.3-8.2)
[2023-08-30] MEDS ORDERED: KETOROLAC 15 MG/ML 1 ML VIAL IVP STA (00:01)
[2023-08-30] MEDS ORDERED: HYDROmorphone 1 MG/ML 1 ML SYRINGE IVP STA (00:02)
[2023-08-30] MEDS ORDERED: HYDROmorphone 0.5 MG/0.5 ML SYRINGE IVP STA ×2 (00:02→00:10)
[2023-08-30] MEDS ORDERED: MORPHINE SULFATE 4 MG/ML SYRINGE IVP STA (03:48)
[2023-08-30 04:34] LABS: Appearance,Urine Cloudy (Clear); Bacteria,Urine Rare /hpf; Bilirubin,Urine Negative (Negative); Blood,Urine Large (Negative); Calcium Oxalate Crystals,Urine Moderate /hpf; Color,Urine Yellow; Glucose,Urine (UA) Negative (Negative); Hyaline Casts,Urine 35 /lpf (0-2); Ketones,Urine Negative (Negative); Leukocyte Esterase,Urine Small (Negative); Mucus,Urine Moderate /hpf; Nitrite,Urine Negative (Negative); PH, Urine 5.5 (5.0-8.0); Protein,Urine 1+ (Negative); RBC,Urine >182 /hpf (0-5); Squamous Epithelial Cell,Urine 1 /hpf (0-4); Urobilinogen,Urine <2.0 mg/dL (<2.0); WBC,Urine 14 /hpf (0-5)
[2023-08-30] MEDS ORDERED: NALOXONE 0.4 MG/ML 1 ML VIAL IV PRN (04:52)
[2023-08-30] MEDS ORDERED: KETOROLAC 15 MG/ML 1 ML VIAL IVP PRN (04:52)
[2023-08-30] MEDS ORDERED: ONDANSETRON 4 MG/2 ML VIAL IVP PRN (04:52)
[2023-08-30] MEDS ORDERED: ACETAMINOPHEN TAB 325 MG TAB PO PRN (04:52)
[2023-08-30] MEDS ORDERED: SODIUM CHLORIDE 0.9% 1,000 ML IV SCH (05:00)
--- NOTE | 2023-08-30 05:36 | CT ---
EXAM: CT Abdomen and Pelvis Without Intravenous Contrast CLINICAL HISTORY: ITS.REASON CT Reason: left abdominal pain r/o stone or other acute process TECHNIQUE: Axial computed tomography images of the abdomen and pelvis without intravenous contrast. CTDI is 12.3 mGy and DLP is 679.4 mGy-cm. This CT exam was performed using one or more of the following dose reduction techniques: automated exposure control, adjustment of the mA and/or kV according to patient size, and/or use of iterative reconstruction technique. COMPARISON: 10/24/2022 FINDINGS: Lung bases: Focal medial right basal increasing airspace opacity, possible developing pneumonia. Bilateral basal dependent atelectasis, possible scarring. Heart: Trace pericardial effusion. ABDOMEN: Liver: Unremarkable. Gallbladder and bile ducts: Prior cholecystectomy. No ductal dilation. Pancreas: Unremarkable. No ductal dilation. Spleen: Unremarkable. No splenomegaly. Adrenals: Unremarkable. No mass. Kidneys and ureters: Left moderate hydroureteronephrosis, perinephric and periureteral stranding, associated with 3 mm, 2 mm, and 2 mm calculi in the distal left ureter immediately proximal to the ureterovesical junction and a 12 mm calculus at the left bladder trigone.. Multiple nonobstructing left renal calculi. Stomach and bowel: Colonic diverticulosis without acute diverticulitis. No obstruction. PELVIS: Appendix: No findings to suggest acute appendicitis. Bladder: Decompressed bladder. No stones. Reproductive: Prior hysterectomy. ABDOMEN and PELVIS: Intraperitoneal space: Unremarkable. No free air. No significant fluid collection. Bones/joints: No acute fracture. No dislocation. Soft tissues: Unremarkable. Vasculature: Unremarkable. No abdominal aortic aneurysm. Lymph nodes: Unremarkable. No enlarged lymph nodes. IMPRESSION: 1. Moderate to significant left urinary obstructive changes associated with multiple calculi in the distal left ureter and at the left bladder trigone. 2. Probable atelectasis and scarring, possible developing basilar pneumonia.
[2023-08-30] MEDS: ENOXAPARIN 40 MG/0.4 ML SYRINGE SQ SCH (11:47)
[2023-08-30] MEDS: HYDROmorphone 0.5 MG/0.5 ML SYRINGE IVP PRN ×2 (12:14→20:53)
[2023-08-30] MEDS: LACTATED RINGERS 1,000 ML IV SCH ×2 (14:36→20:55)
--- NOTE | 2023-08-30 14:44 | P.HPIM ---
History of Present Illness H&P Date: 08/30/23 Chief Complaint: Left flank pain Pleasant 73-year-old patient follows with Dr. Martinez. Tonic stable medical conditions include asthma, hyperlipidemia, osteopenia, vitamin D deficiency. Back in November 2022 patient had a nephrostomy tube placed. 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 Patient started off yesterday with increasing left flank pain going down the left groin. Accompanied by nausea several bouts of vomiting. Significant chills. Left flank pain persists. Urology has been consulted. Review of systems: GEN.: Weak tired chills decreased appetite EYES: None HEENT: None NECK: None RESPIRATORY: None CARDIOVASCULAR: None GASTROINTESTINAL: As above GENITOURINARY: None MUSCULOSKELETAL: None LYMPHATICS: None HEMATOLOGICAL: None PSYCHIATRY: None NEUROLOGICAL: None Social history: Nonsmoker. Occasional alcohol. Lives alone. Physical examination: VITAL SIGNS: 98.9, 105, 18, 1 40/84, 94% room air upon presentation GENERAL: BMI 31.9, laying in bed uncomfortable. EYES: Pupils equal. Conjunctiva normal. HEENT: External appearance of nose and ears normal, oral cavity grossly normal. NECK: JVD not raised; masses not palpable. HEART: First and second heart sounds are normal; no edema. LUNGS: Respiratory rate normal; clear to auscultation. ABDOMEN: Soft, renal angle tenderness, liver spleen not palpable, no masses palpable. PSYCH: [Alert and oriented x3; mood and affect. Anxious l. MUSCULOSKELETAL:No Clubbing/cyanosis;muscles-grossly intact NEUROLOGICAL: Cranial nerves grossly intact; no facial asymmetry, power and sensation grossly intact. LYMPHATICS: No lymph nodes palpable in the axilla and neck INVESTIGATIONS, reviewed in the clinical context: 08/29/2023: White count 11.5 hemoglobin 15.9 platelets 3-0 Vicryl sodium 1:30 potassium 3.9 creatinine 0.91 UA positive for blood, leukoesterase, WBC 14 calcium IN case crystals moderate CT abdomen and pelvis without contrast: Left moderate hydroureteronephrosis perinephric and periureteral stranding, 3 mm, 2 mm, 2 mg tablet in the distal left ureter proximal to the uterovesical junction. 12mm calculus of the left bladder trigone. Altered both nonobstructing left renal calculi. Colonic diverticulosis. Assessment and plan: -Left moderate hydroureteronephrosis perinephric and periureteral stranding with 3 mm, 2 mm, 2 mm calculus in the distal left ureter proximal to the UV junction. Causing early pyelonephritis with probable sepsis with tachycardia and elevated white count. Patient been having significant chills. Urology consulted. Blood culture. IV fluids IV ceftriaxone. -Multiple nonobstructing left renal calculi. Oxalate stones positive. -Colonic diverticulosis, asymptomatic -Chronic osteopenia and vitamin D deficiency -Hyperlipidemia Lipitor 20 mg daily at bedtime -Depression and anxiety Celexa 40 mg daily at bedtime -Intermittent asthma Singulair IV fluids. Blood culture. IV antibiotics. Urology consulted. Given patient's symptoms will progress and obstruction. Patient be kept in the hospital for at least overnight. Past Medical History Past Medical History: Asthma, Hyperlipidemia Additional Past Medical History / Comment(s): current prednison, bronchial prob lems greater than a month, Hx. of kidney stones, osteopenia, vitamin D deficiency History of Any Multi-Drug Resistant Organisms: None Reported Past Surgical History: Cholecystectomy, Hysterectomy Additional Past Surgical History / Comment(s): colonoscopy, wrist surgery, kidney surgery & Lithotripsy. Past Anesthesia/Blood Transfusion Reactions: No Reported Reaction Past Psychological History: No Psychological Hx Reported Smoking Status: Never smoker Past Alcohol Use History: Occasional Past Drug Use History: None Reported - Past Family History Mother Family Medical History: AFIB Father Additional Family Medical History / Comment(s): heart problems Medications and Allergies Home Medications Medication Instructions Recorded Confirmed Type Atorvastatin [Lipitor] 20 mg PO HS 08/09/21 08/30/23 History Citalopram Hydrobromide 40 mg PO HS 08/09/21 08/30/23 History [Citalopram HBr] Montelukast [Singulair] 10 mg PO HS 08/09/21 08/30/23 History Allergies Allergy/AdvReac Type Severity Reaction Status Date / Time No Known Allergies Allergy Verified 08/30/23 07:35 Physical Exam Vitals: Vital Signs Temp Pulse Resp BP Pulse Ox 08/30/23 05:51 98.5 F 72 19 123/68 95 08/30/23 04:31 71 18 127/75 95 08/29/23 22:53 98.9 F 105 H 18 148/84 94 L Intake and Output 0108/30/23 08/30/23 22:59 06:59 14:59 Other: Weight 81.647 kg Results CBC & Chem 7: 08/29/23 23:17 08/29/23 23:21 Labs: Abnormal Lab Results - Last 24 Hours (Table) 08/29/23 08/29/23 08/30/23 Range/Units 23:17 23:21 03:17 WBC 11.5 H (3.8-10.6) k/uL RBC 5.46 H (3.80-5.40) m/uL Hct 47.3 H (34.0-46.0) % Neutrophils # 9.0 H (1.3-7.7) k/uL Glucose 148 H (74-99) mg/dL Alkaline Phosphatase 142 H (38-126) U/L Urine Appearance Cloudy H (Clear) Urine Protein 1+ H (Negative) Urine Blood Large H (Negative) Ur Leukocyte Esterase Small H (Negative) Urine RBC >182 H (0-5) /hpf Urine WBC 14 H (0-5) /hpf Calcium Oxalate Crystal Moderate H (None) /hpf Urine Bacteria Rare H (None) /hpf Hyaline Casts 35 H (0-2) /lpf Urine Mucus Moderate H (None) /hpf
[2023-08-30 16:20] LABS: African American GFR (CKD) 77 (>60 ml/min/1.73 sqM); Anion Gap 8 mmol/L; Blood Urea Nitrogen 20 mg/dL (7-17); Calcium 8.9 mg/dL (8.4-10.2); Carbon Dioxide 25 mmol/L (22-30); Chloride 104 mmol/L (98-107); Glucose 91 mg/dL (74-99); Non-African American GFR(CKD) 67 (>60 ml/min/1.73 sqM); Potassium 3.9 mmol/L (3.5-5.1); Sodium 137 mmol/L (137-145)
--- NOTE | 2023-08-30 17:26 | P.GSCN ---
History of Present Illness Consult date: 08/30/23 Reason for Consult: Left ureteral stone History of present illness: This is 73-year-old female admitted to the hospital with intractable left flank pain associated with nausea and vomiting. She is a patient of Dr Quinones She has history of staghorn calculi, and underwent left-sided PCNL by Dr. Quinones in November. On presentation to the ER she underwent a CT that showed evidence of multiple ureteral stones and a 1.2 cm stone at the UVJ versus the bladder. There was evidence of severe hydronephrosis. since admission she continues to have pain despite IV pain medications, though indicates the nausea has improved. Denies any dysuria or gross hematuria. Denies any fevers or chills. Review of Systems - Constitutional Denies fever, Denies weight loss - Cardiovascular Denies chest pain, Denies shortness of breath - Respiratory Denies cough, Denies 7 - Gastrointestinal Reports abdominal pain, Reports nausea, Reports vomiting - Genitourinary Genitourinary: Reports flank pain, Denies dysuria, Denies hematuria - Neurological Denies headaches, Denies syncope Past Medical History Past Medical History: Asthma, Hyperlipidemia Additional Past Medical History / Comment(s): current prednison, bronchial problems greater than a month, Hx. of kidney stones, osteopenia, vitamin D def iciency History of Any Multi-Drug Resistant Organisms: None Reported Past Surgical History: Cholecystectomy, Hysterectomy Additional Past Surgical History / Comment(s): colonoscopy, wrist surgery, kidney surgery & Lithotripsy. Past Anesthesia/Blood Transfusion Reactions: No Reported Reaction Past Psychological History: No Psychological Hx Reported Smoking Status: Never smoker Past Alcohol Use History: Occasional Past Drug Use History: None Reported - Past Family History Mother Family Medical History: AFIB Father Additional Family Medical History / Comment(s): heart problems Medications and Allergies Home Medications Medication Instructions Recorded Confirmed Type Atorvastatin [Lipitor] 20 mg PO HS 08/09/21 08/30/23 History Citalopram Hydrobromide 40 mg PO HS 08/09/21 08/30/23 History [Citalopram HBr] Montelukast [Singulair] 10 mg PO HS 08/09/21 08/30/23 History Allergies Allergy/AdvReac Type Severity Reaction Status Date / Time No Known Allergies Allergy Verified 08/30/23 07:35 Surgical - Exam Vital Signs Temp Pulse Resp BP Pulse Ox 98.9 F 105 H 18 148/84 94 L 08/29/23 22:53 08/29/23 22:53 08/29/23 22:53 08/29/23 22:53 08/29/23 22:53 - General no distress, moderate pain - Eyes normal ocular movement, no pale - ENT normal nares, normal mucosa - Respiratory normal expansion, normal respiratory effort - Abdomen Abdomen: soft, tender (Left flank) - Psychiatric oriented to time, oriented to person, oriented to place Results - Labs 08/29/23 23:17 08/30/23 14:47 Abnormal Lab Results - Last 24 Hours (Table) 08/29/23 08/29/23 08/30/23 Range/Units 23:17 23:21 03:17 WBC 11.5 H (3.8-10.6) k/uL RBC 5.46 H (3.80-5.40) m/uL Hct 47.3 H (34.0-46.0) % Neutrophils # 9.0 H (1.3-7.7) k/uL BUN (7-17) mg/dL Glucose 148 H (74-99) mg/dL Alkaline Phosphatase 142 H (38-126) U/L Urine Appearance Cloudy H (Clear) Urine Protein 1+ H (Negative) Urine Blood Large H (Negative) Ur Leukocyte Esterase Small H (Negative) Urine RBC >182 H (0-5) /hpf Urine WBC 14 H (0-5) /hpf Calcium Oxalate Crystal Moderate H (None) /hpf Urine Bacteria Rare H (None) /hpf Hyaline Casts 35 H (0-2) /lpf Urine Mucus Moderate H (None) /hpf 08/30/23 Range/Units 14:47 WBC (3.8-10.6) k/uL RBC (3.80-5.40) m/uL Hct (34.0-46.0) % Neutrophils # (1.3-7.7) k/uL BUN 20 H (7-17) mg/dL Glucose (74-99) mg/dL Alkaline Phosphatase (38-126) U/L Urine Appearance (Clear) Urine Protein (Negative) Urine Blood (Negative) Ur Leukocyte Esterase (Negative) Urine RBC (0-5) /hpf Urine WBC (0-5) /hpf Calcium Oxalate Crystal (None) /hpf Urine Bacteria (None) /hpf Hyaline Casts (0-2) /lpf Urine Mucus (None) /hpf Diabetes panel 08/29/23 08/30/23 Range/Units 23:21 14:47 Sodium 138 137 (137-145) mmol/L Potassium 3.9 3.9 (3.5-5.1) mmol/L Chloride 104 104 (98-107) mmol/L Carbon Dioxide 22 25 (22-30) mmol/L BUN 16 20 H (7-17) mg/dL Creatinine 0.91 0.86 (0.52-1.04) mg/dL Glucose 148 H 91 (74-99) mg/dL Calcium 9.6 8.9 (8.4-10.2) mg/dL AST 28 (14-36) U/L ALT 20 (4-34) U/L Alkaline Phosphatase 142 H (38-126) U/L Total Protein 7.3 (6.3-8.2) g/dL Albumin 4.2 (3.5-5.0) g/dL Calcium panel 08/29/23 08/30/23 Range/Units 23:21 14:47 Calcium 9.6 8.9 (8.4-10.2) mg/dL Albumin 4.2 (3.5-5.0) g/dL Pituitary panel 08/29/23 08/30/23 Range/Units 23:21 14:47 Sodium 138 137 (137-145) mmol/L Potassium 3.9 3.9 (3.5-5.1) mmol/L Chloride 104 104 (98-107) mmol/L Carbon Dioxide 22 25 (22-30) mmol/L BUN 16 20 H (7-17) mg/dL Creatinine 0.91 0.86 (0.52-1.04) mg/dL Glucose 148 H 91 (74-99) mg/dL Calcium 9.6 8.9 (8.4-10.2) mg/dL Adrenal panel 08/29/23 08/30/23 Range/Units 23:21 14:47 Sodium 138 137 (137-145) mmol/L Potassium 3.9 3.9 (3.5-5.1) mmol/L Chloride 104 104 (98-107) mmol/L Carbon Dioxide 22 25 (22-30) mmol/L BUN 16 20 H (7-17) mg/dL Creatinine 0.91 0.86 (0.52-1.04) mg/dL Glucose 148 H 91 (74-99) mg/dL Calcium 9.6 8.9 (8.4-10.2) mg/dL Total Bilirubin 0.9 (0.2-1.3) mg/dL AST 28 (14-36) U/L ALT 20 (4-34) U/L Alkaline Phosphatase 142 H (38-126) U/L Total Protein 7.3 (6.3-8.2) g/dL Albumin 4.2 (3.5-5.0) g/dL - Imaging CT scan - abdomen: image reviewed (1.2 cm stone in the bladder versus the UVJ, multiple left ureteral stones with severe hydronephrosis. Significant stone burden in the left lower pole of the kidney) Assessment and Plan Assessment: 73-year-old female history of recurrent kidney stones. History of staghorn treated with a PCNL in November of last year. He presented to the hospital with intractable pain secondary to multiple ureteral stones and 1.2 cm stone at the UVJ versus the bladder. Continues to have pain requiring IV pain medications. Discussed with her given her persistent pain and recommend proceed with left- sided ureteroscopy with holmium laser. Risk benefits and rationale were discussed in detail -Nothing by mouth past midnight -Or for left-sided ureteroscopy with holmium laser lithotripsy, stone basketing and stent insertion tomorrow
[2023-08-30] MEDS: MONTELUKAST 10 MG TAB PO SCH (20:46)
[2023-08-30] MEDS: ATORVASTATIN 20 MG TAB PO SCH (20:46)
[2023-08-30] MEDS: CITALOPRAM HYDROBROMIDE 20 MG TAB PO SCH (20:46)
[2023-08-31] MEDS: HYDROmorphone 0.5 MG/0.5 ML SYRINGE IVP PRN ×5 (01:34→19:53)
[2023-08-31] MEDS: LACTATED RINGERS 1,000 ML IV SCH ×3 (02:33→17:01)
[2023-08-31 08:32] LABS: Basophils % (A) 0 %; Eosinophils % (A) 0 %; HCT 39.3 % (34.0-46.0); Lymphocytes # (A) 1.1 k/uL (1.0-4.8); Lymphocytes % (A) 24 %; MCHC 32.8 g/dL (31.0-37.0); MCV 88.4 fL (80.0-100.0); Mean Platelet Volume 7.4; Monocytes # (A) 0.4 k/uL (0-1.0); Monocytes % (A) 8 %; Neutrophils # (A) 2.9 k/uL (1.3-7.7); Neutrophils % (A) 65 %; Platelet Count 212 k/uL (150-450); RBC 4.45 m/uL (3.80-5.40); RDW 12.2 % (11.5-15.5); WBC 4.5 k/uL (3.8-10.6)
[2023-08-31] MEDS: ENOXAPARIN 40 MG/0.4 ML SYRINGE SQ SCH (08:35)
[2023-08-31 08:37] LABS: HGB 12.9 gm/dL (11.4-16.0)
[2023-08-31 08:48] LABS: African American GFR (CKD) 85 (>60 ml/min/1.73 sqM); Anion Gap 7 mmol/L; Blood Urea Nitrogen 18 mg/dL (7-17); Calcium 8.8 mg/dL (8.4-10.2); Carbon Dioxide 27 mmol/L (22-30); Chloride 105 mmol/L (98-107); Glucose 99 mg/dL (74-99); Non-African American GFR(CKD) 74 (>60 ml/min/1.73 sqM); Potassium 3.8 mmol/L (3.5-5.1); Sodium 139 mmol/L (137-145)
[2023-08-31] MEDS ORDERED: IV FLUID CONTINUATION 400 ML IV ONE (09:54)
[2023-08-31] MEDS ORDERED: ePHEDrine 50 MG/ML 1 ML VIAL ONE (10:06)
[2023-08-31] MEDS ORDERED: LIDOCAINE 1% INJ 10MG/ML (20 ML MDV) ONE (10:06)
[2023-08-31] MEDS ORDERED: fentaNYL (PF) 50 MCG/ML 2 ML AMP ONE (10:06)
[2023-08-31] MEDS ORDERED: ONDANSETRON 4 MG/2 ML VIAL ONE (10:06)
[2023-08-31] MEDS ORDERED: PROPOFOL 10 MG/ML 20 ML VIAL IV ONE (10:06)
[2023-08-31] MEDS ORDERED: DEXAMETHASONE SOD PHOSPHATE 4 MG/ML 1 ML VIAL ONE (10:06)
[2023-08-31] MEDS ORDERED: MIDAZOLAM 2 MG/2 ML VIAL ONE (10:06)
--- NOTE | 2023-08-31 10:58 | P.PN ---
Progress Note - Text Progress Note Date: 08/31/23 Chief Complaint: Left flank pain Pleasant 73-year-old patient follows with Dr. Martinez. Tonic stable medical conditions include asthma, hyperlipidemia, osteopenia, vitamin D deficiency. Back in November 2022 patient had a nephrostomy tube placed. 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 Patient started off yesterday with increasing left flank pain going down the left groin. Accompanied by nausea several bouts of vomiting. Significant chills. Left flank pain persists. Urology has been consulted. 08/31/2023: Congestive left flank pain. Seen by Dr. arevalo from urology. For intervention this afternoon. Continue with IV fluids IV ceftriaxone. Patient tired. Patient had some hematuria overnight. Active Medications Acetaminophen (Acetaminophen Tab 325 Mg Tab) 650 mg PO Q6HR PRN PRN Reason: Mild Pain or Fever > 100.5 Atorvastatin Calcium (Atorvastatin 20 Mg Tab) 20 mg PO HS [facility] Last Admin: 08/30/23 20:46 Dose: 20 mg Citalopram Hydrobromide (Citalopram Hydrobromide 20 Mg Tab) 40 mg PO HS [facility] Last Admin: 08/30/23 20:46 Dose: 40 mg Enoxaparin Sodium (Enoxaparin 40 Mg/0.4 Ml Syringe) 40 mg SQ DAILY [facility] Last Admin: 08/31/23 08:35 Dose: 40 mg Hydromorphone HCl (Hydromorphone 0.5 Mg/0.5 Ml Syringe) 0.5 mg IVP Q3HR PRN PRN Reason: Moderate Pain (Scale 4 to 6) Last Admin: 08/31/23 07:45 Dose: 0.5 mg Lactated Ringer's (Lactated Ringers) 1,000 mls @ 140 mls/hr IV .Q7H9M [facility] Last Admin: 08/31/23 02:33 Dose: 140 mls/hr Ceftriaxone Sodium 1 gm/ (Sodium Chloride) 50 mls @ 100 mls/hr IVPB Q24HR [facility]; Protocol Last Admin: 08/31/23 08:33 Dose: 100 mls/hr Ketorolac Tromethamine (Ketorolac 15 Mg/Ml 1 Ml Vial) 15 mg IVP Q6HR PRN PRN Reason: Moderate Pain (Scale 4 to 6) Stop: 09/02/23 04:54 Montelukast Sodium (Montelukast 10 Mg Tab) 10 mg PO HS [facility] Last Admin: 08/30/23 20:46 Dose: 10 mg Naloxone HCl (Naloxone 0.4 Mg/Ml 1 Ml Vial) 0.2 mg IV Q2M PRN PRN Reason: Opioid Reversal Ondansetron HCl (Ondansetron 4 Mg/2 Ml Vial) 4 mg IVP Q8HR PRN PRN Reason: Nausea And Vomiting Last Admin: 08/31/23 07:45 Dose: 4 mg Social history: Nonsmoker. Occasional alcohol. Lives alone. Physical examination: VITAL SIGNS: 98.1, 64, 20, 137/67, 94% room air GENERAL: in bed uncomfortable. EYES: Pupils equal. Conjunctiva normal. HEENT: External appearance of nose and ears normal, oral cavity grossly normal. NECK: JVD not raised; masses not palpable. HEART: First and second heart sounds are normal; no edema. LUNGS: Respiratory rate normal; clear to auscultation. ABDOMEN: Soft, renal angle tenderness, liver spleen not palpable, no masses palpable. PSYCH: [Alert and oriented x3; mood and affect. Anxious l. MUSCULOSKELETAL:No Clubbing/cyanosis;muscles-grossly intact INVESTIGATIONS, reviewed in the clinical context: August 31: White count 4.5 hemoglobin 12.9 potassium 3.8 creatinine 0.79 08/29/2023: White count 11.5 hemoglobin 15.9 platelets 3-0 Vicryl sodium 1:30 potassium 3.9 creatinine 0.91 UA positive for blood, leukoesterase, WBC 14 calcium IN case crystals moderate CT abdomen and pelvis without contrast: Left moderate hydroureteronephrosis perinephric and periureteral stranding, 3 mm, 2 mm, 2 mg tablet in the distal left ureter proximal to the uterovesical junction. 12mm calculus of the left bladder trigone. Altered both nonobstructing left renal calculi. Colonic diverticulosis. Assessment and plan: -Left moderate hydroureteronephrosis perinephric and periureteral stranding with 3 mm, 2 mm, 2 mm calculus in the distal left ureter proximal to the UV junction. Causing early pyelonephritis with probable sepsis with tachycardia and elevated white count. Patient been having significant chills.: Slow to respond Seen by urology, pending intervention this afternoon.. Blood culture. IV fluids IV ceftriaxone. -Multiple nonobstructing left renal calculi. Oxalate stones positive. -Colonic diverticulosis, asymptomatic -Chronic osteopenia and vitamin D deficiency -Hyperlipidemia Lipitor 20 mg daily at bedtime -Depression and anxiety Celexa 40 mg daily at bedtime -Intermittent asthma Singulair Constipation. IV fluids. IV antibiotics. Pending surgical intervention.. Past Medical History Past Medical History: Asthma, Hyperlipidemia Additional Past Medical History / Comment(s): current prednison, bronchial problems greater than a month, Hx. of kidney stones, osteopenia, vitamin D deficiency History of Any Multi-Drug Resistant Organisms: None Reported Past Surgical History: Cholecystectomy, Hysterectomy Additional Past Surgical History / Comment(s): colonoscopy, wrist surgery, kidney surgery & Lithotripsy. Past Anesthesia/Blood Transfusion Reactions: No Reported Reaction Past Psychological History: No Psychological Hx Reported Smoking Status: Never smoker Past Alcohol Use History: Occasional Past Drug Use History: None Reported
--- NOTE | 2023-08-31 12:44 | FL ---
EXAMINATION TYPE: FL guidance operating room Intraoperative/procedural fluoroscopic services were pro vided. Total fluoroscopy time is 12 seconds with a total of 5 submitted images to PACS. Please see th e operative/procedural note for further details. DAP: 1.6396 Gycm2
--- NOTE | 2023-08-31 16:46 | P.PN ---
Subjective Progress Note Date: 08/31/23 Continues to have left flank pain this morning, denies any gross hematuria or dysuria Objective - Vital Signs Vital signs: Vital Signs Temp 98.1 F 08/31/23 13:18 Pulse 83 08/31/23 13:18 Resp 20 08/31/23 13:18 BP 136/79 08/31/23 13:18 Pulse Ox 95 08/31/23 13:18 FiO2 Intake & Output 08/30/23 08/31/23 08/31/23 18:59 06:59 18:59 Intake Total 800 Balance 800 Weight 81.647 kg Intake: IV 800 - Constitutional General appearance: Present: no acute distress - Gastrointestinal General gastrointestinal: Present: soft, tenderness (Left flank). Absent: distended - Psychiatric Psychiatric: Present: A&O x's 3 - Labs CBC & Chem 7: 08/31/23 08:09 08/31/23 08:09 Labs: Abnormal Lab Results - Last 24 Hours (Table) 08/31/23 Range/Units 08:09 BUN 18 H (7-17) mg/dL Assessment and Plan Assessment: 73-year-old female history of recurrent kidney stones. History of staghorn treated with a PCNL in November of last year. He presented to the hospital with intractable pain secondary to multiple ureteral stones and 1.2 cm stone at the UVJ versus the bladder. Continues to have pain requiring IV pain medications. Discussed with her given her persistent pain and recommend proceed with left- sided ureteroscopy with holmium laser. Risk benefits and rationale were discussed in detail -Or for left-sided ureteroscopy with holmium laser lithotripsy, stone basketing and stent insertion tomorrow
--- NOTE | 2023-08-31 16:52 | P.OP ---
Date of Procedure: 08/31/23 Preoperative Diagnosis: Left ureteral stone Postoperative Diagnosis: Same Procedure(s) Performed: Cystoscopy, left ureteroscopy, holmium laser lithotripsy, stone basketing and stent insertion Implants: 6-Barbadian by 24 cm stent in the left ureter left on a string Anesthesia: ZHOU Surgeon: Olvin Abreu Estimated Blood Loss (ml): 1 Pathology: other (Left renal stones) Condition: stable Disposition: PACU Indications for Procedure: 73-year-old female history of recurrent kidney stones. History of staghorn treated with a PCNL in November of last year. He presented to the hospital with intractable pain secondary to multiple ureteral stones and 1.2 cm stone at the UVJ versus the bladder. Continues to have pain requiring IV pain medications. Discussed with her given her persistent pain and recommend proceed with left- sided ureteroscopy with holmium laser. Risk benefits and rationale were discussed in det Description of Procedure: Patient brought to the operating room, general anesthesia was induced. She was prepped and draped in sterile fashion and placed in dorsal lithotomy position. Cystoscopy fitted 21-Barbadian sheath was inserted per urethra, cystoscopy was performed which showed no abnormality within the bladder. Attention was then carried to the left ureteral orifice, semirigid ureteroscope was inserted per urethra and advanced up the left ureteral orifice, scope was advanced all the way up to the proximal ureter which did not show any evidence of stones, pullback ureteroscopy was performed which showed no injury to the ureter or any ureteral stones, as ureteroscope was withdrawn and a sensor wire was advanced through. Next under fluoroscopy a 1113 Barbadian access sheath was passed over the wire into the proximal ureter. Next a flexible ureteroscope was inserted through the access sheath, at this point a large stone was seen in the renal pelvis, this was fragmented using the laser, stone fragments were removed using the stone basket, there was also additional stones within the mid pole which were also laser fragmented and sizable fragment were removed using the stone basket. Additionally patient did have lower pole renal stones, but I was not able to visualized using the flexible ureteroscope given the acute angle of the kidney. At this time, repeat renoscopy showed no sizable fragments or injury to the kidney, pullback ureteroscopy was performed which showed no injury to the ureter or any ureteral stones, as ureteroscope was withdrawn and a sensor wire was advanced through. Next a ureteral stent was passed over the wire, the proximal curl was visualized on fluoroscopy and the distal curl was was visualized using the cystoscope. The stent was left on a string and taped to the patient's left thigh. Patient tolerated procedure well was taken to recovery in stable condition
[2023-08-31] MEDS: MONTELUKAST 10 MG TAB PO SCH (19:50)
[2023-08-31] MEDS: ATORVASTATIN 20 MG TAB PO SCH (19:50)
[2023-08-31] MEDS: CITALOPRAM HYDROBROMIDE 20 MG TAB PO SCH (19:50)
[2023-09-01] MEDS: HYDROmorphone 0.5 MG/0.5 ML SYRINGE IVP PRN (00:17)
[2023-09-01] MEDS: LACTATED RINGERS 1,000 ML IV SCH ×2 (00:17→07:23)
[2023-09-01 06:49] LABS: Basophils % (A) 0 %; Eosinophils % (A) 0 %; HCT 37.3 % (34.0-46.0); HGB 12.4 gm/dL (11.4-16.0); Lymphocytes # (A) 0.8 k/uL (1.0-4.8); Lymphocytes % (A) 9 %; MCH 29.7 pg (25.0-35.0); MCHC 33.3 g/dL (31.0-37.0); MCV 89.2 fL (80.0-100.0); Mean Platelet Volume 7.3; Monocytes # (A) 0.5 k/uL (0-1.0); Monocytes % (A) 6 %; Neutrophils # (A) 7.4 k/uL (1.3-7.7); Neutrophils % (A) 83 %; Platelet Count 192 k/uL (150-450); RBC 4.18 m/uL (3.80-5.40); WBC 8.9 k/uL (3.8-10.6)
[2023-09-01 07:00] LABS: African American GFR (CKD) 81 (>60 ml/min/1.73 sqM); Anion Gap 5 mmol/L; Blood Urea Nitrogen 13 mg/dL (7-17); Carbon Dioxide 28 mmol/L (22-30); Chloride 104 mmol/L (98-107); Glucose 110 mg/dL (74-99); Non-African American GFR(CKD) 70 (>60 ml/min/1.73 sqM); Sodium 137 mmol/L (137-145)
[2023-09-01] MEDS: ENOXAPARIN 40 MG/0.4 ML SYRINGE SQ SCH (07:30)
[2023-09-01 08:15] VITALS: RESP 17
[2023-09-01 14:22] VITALS: BP 154/84; PULSE 69; TEMP 98.9
--- NOTE | 2023-09-01 15:07 | P.PN ---
Subjective Underwent left-sided ureteroscopy with holmium laser, pain has improved this morning but still having some flank pain. Denies any gross hematuria or dysuria Objective - Vital Signs Vital signs: Vital Signs Temp 98.9 F 09/01/23 12:50 Pulse 69 09/01/23 12:50 Resp 17 09/01/23 12:50 BP 154/84 09/01/23 12:50 Pulse Ox 95 09/01/23 12:50 FiO2 Intake & Output 08/31/23 09/01/23 09/01/23 18:59 06:59 18:59 Intake Total 800 Balance 800 Weight 81.647 kg Intake: IV 800 Other: Voiding Method Toilet Toilet # Voids 1 1 - Constitutional General appearance: Present: no acute distress - Gastrointestinal General gastrointestinal: Present: soft, tenderness (Left flank). Absent: distended - Psychiatric Psychiatric: Present: A&O x's 3 - Labs CBC & Chem 7: 09/01/23 06:14 09/01/23 06:14 Labs: Abnormal Lab Results - Last 24 Hours (Table) 09/01/23 09/01/23 Range/Units 06:14 06:14 Lymphocytes # 0.8 L (1.0-4.8) k/uL Glucose 110 H (74-99) mg/dL Microbiology - Last 24 Hours (Table) 08/30/23 14:51 Blood Culture - Preliminary Blood Assessment and Plan Assessment: 73-year-old female history of recurrent kidney stones. History of staghorn treated with a PCNL in November of last year. He presented to the hospital with intractable pain secondary to multiple ureteral stones and 1.2 cm stone at the UVJ versus the bladder. Underwent left-sided ureteroscopy with holmium laser and stent yesterday. Pain has improved this morning -Okay for discharge from urology standpoint -f/u as an outpatient in 1 week for stent removal, the stent is on a string
--- NOTE | 2023-09-01 17:09 | P.DS ---
Providers Date of admission: 08/30/23 14:34 Expected date of discharge: 09/01/23 Attending physician: Cody Park Consults: 08/30/23 04:52 Consult Physician Routine Consulting Provider: Olvin Abreu Consult Reason/Comments: Obstructing renal calculi Do you want consulting provider notified?: Yes Primary care physician: [facility] Hospital Course: Chief Complaint: Left flank pain Pleasant 73-year-old patient follows with Dr. Martinez. Tonic stable medical conditions include asthma, hyperlipidemia, osteopenia, vitamin D deficiency. Back in November 2022 patient had a nephrostomy tube placed. 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 Patient started off yesterday with increasing left flank pain going down the left groin. Accompanied by nausea several bouts of vomiting. Significant chills. Left flank pain persists. Urology has been consulted. 08/31/2023: Congestive left flank pain. Seen by Dr. abreu from urology. For intervention this afternoon. Continue with IV fluids IV ceftriaxone. Patient tired. Patient had some hematuria overnight. 09/01/2023: Left flank pain better. Had intervention by urology yesterday. Dr. abreu. He cleared the patient today to go home. Follow-up in the office in one week's time and Dr. Larios. Spoke to the patient to keep her liquid intake up. Naproxen and Tylenol for pain control. Questions answered. He'll complete a short course of antibiotic because of suspected infection initially. Social history: Nonsmoker. Occasional alcohol. Lives alone. Physical examination: VITAL SIGNS: 98.9, 69, 17, 150/84, 95% room air GENERAL: Comfortable EYES: Pupils equal. Conjunctiva normal. HEENT: External appearance of nose and ears normal, oral cavity grossly normal. NECK: JVD not raised; masses not palpable. HEART: First and second heart sounds are normal; no edema. LUNGS: Respiratory rate normal; clear to auscultation. ABDOMEN: Soft, decreased renal angle tenderness, liver spleen not palpable, no masses palpable. PSYCH: [Alert and oriented x3; mood and affect. Normal MUSCULOSKELETAL:No Clubbing/cyanosis;muscles-grossly intact INVESTIGATIONS, reviewed in the clinical context: 09/01/2023: White count 8.9 hemoglobin 12.4 platelets 192 potassium 5 creatinine 0.82 Nalini 4 24: White count 4.5 hemoglobin 12.9 potassium 3.8 creatinine 0.79 08/29/2023: White count 11.5 hemoglobin 15.9 platelets 3-0 Vicryl sodium 1:30 potassium 3.9 creatinine 0.91 UA positive for blood, leukoesterase, WBC 14 calcium IN case crystals moderate CT abdomen and pelvis without contrast: Left moderate hydroureteronephrosis perinephric and periureteral stranding, 3 mm, 2 mm, 2 mg tablet in the distal left ureter proximal to the uterovesical junction. 12mm calculus of the left bl adder trigone. Altered both nonobstructing left renal calculi. Colonic diverticulosis. Assessment and plan: -Left moderate hydroureteronephrosis perinephric and periureteral stranding with 3 mm, 2 mm, 2 mm calculus in the distal left ureter proximal to the UV junction. Causing early pyelonephritis with probable sepsis with tachycardia and elevated white count. Patient been having significant chills.: August 31: Underwent cystoscopy left ureteroscopy, laser lithotripsy, stone basketing and stent insertion.: By Dr. abreu Seen by urology, pending intervention this afternoon.. Blood culture. IV fluids IV ceftriaxone. DC home on Ceftin 5 mg twice a day for 7 days -Multiple nonobstructing left renal calculi. Oxalate stones positive. -Colonic diverticulosis, asymptomatic -Chronic osteopenia and vitamin D deficiency -Hyperlipidemia Lipitor 20 mg daily at bedtime -Depression and anxiety Celexa 40 mg daily at bedtime -Intermittent asthma Singulair Disposition: Home Past Medical History Past Medical History: Asthma, Hyperlipidemia Additional Past Medical History / Comment(s): current prednison, bronchial prob lems greater than a month, Hx. of kidney stones, osteopenia, vitamin D deficiency History of Any Multi-Drug Resistant Organisms: None Reported Past Surgical History: Cholecystectomy, Hysterectomy Additional Past Surgical History / Comment(s): colonoscopy, wrist surgery, kidney surgery & Lithotripsy. Past Anesthesia/Blood Transfusion Reactions: No Reported Reaction Past Psychological History: No Psychological Hx Reported Smoking Status: Never smoker Past Alcohol Use History: Occasional Past Drug Use History: None Reported Plan - Discharge Summary New Discharge Prescriptions: New cefUROXime axetiL [Ceftin] 500 mg PO BID #14 tab Naproxen [Naprosyn] 250 mg PO BID #14 tab Continue Montelukast [Singulair] 10 mg PO HS Citalopram Hydrobromide [Citalopram HBr] 40 mg PO HS Atorvastatin [Lipitor] 20 mg PO HS Discharge Medication List Atorvastatin [Lipitor] 20 mg PO HS 08/09/21 [History] Citalopram Hydrobromide [Citalopram HBr] 40 mg PO HS 08/09/21 [History] Montelukast [Singulair] 10 mg PO HS 08/09/21 [History] Naproxen [Naprosyn] 250 mg PO BID #14 tab 09/01/23 [Rx] cefUROXime axetiL [Ceftin] 500 mg PO BID #14 tab 09/01/23 [Rx] Follow up Appointment(s)/Referral(s): Ze Martinez DO [Primary Care Provider] - 1-2 days (Office closed at time of discharge. Please call for follow-up appointment.) Gopal Quinones MD [STAFF PHYSICIAN] - 1 Week (Office is closed at time of discharge. Please call for follow-up appointment.) Patient Instructions/Handouts: Ureteral Stent Placement (DC) Discharge Disposition: HOME SELF-CARE
== END 2023-09-01 17:02 | disposition home or self-care (01) | DRG 854 ==
LOC: EC 22:45 → 5NMEDONC 08-30 04:52 → OBSVTOIN 08-30 14:34 → 5NMEDONC 08-30 23:32 → 4SSUR 08-31 12:47
PROVIDERS: ADMIT Hospitalist; ATTEND Hospitalist
PROC: 0T778DZ Dilation of Left Ureter with Intraluminal Device, Via Natural or Artificial Opening Endoscopic (ICD-10-PCS; principal; 2023-08-31 07:30)
PROC: 0TC78ZZ Extirpation of Matter from Left Ureter, Via Natural or Artificial Opening Endoscopic (ICD-10-PCS; principal; 2023-08-31 07:30)
DX: A41.9 Sepsis, unspecified organism (principal); N13.6 Pyonephrosis; E55.9 Vitamin D deficiency, unspecified; E78.5 Hyperlipidemia, unspecified; F32.A Depression, unspecified; F41.9 Anxiety disorder, unspecified; I10 Essential (primary) hypertension; J45.20 Mild intermittent asthma, uncomplicated; M85.80 Other specified disorders of bone density and structure, unspecified site; Z79.899 Other long term (current) drug therapy; Z87.442 Personal history of urinary calculi; Z28.310 Unvaccinated for COVID-19; Z28.81 Immunization not carried out due to patient having had the disease; K57.30 Diverticulosis of large intestine without perforation or abscess without bleeding
CPT/HCPCS: 36415; 74176; 80048; 80053; 81001; 82150; 82365; 83690; 85025; 87040; 96361; 96365; 96372; 96375; 96376; 99285

== ENCOUNTER → 2023-10-09 | Outpatient (CLI) | payer MEDICARE ==
--- NOTE | 2023-10-10 08:18 | XR ---
EXAMINATION TYPE: XR KUB DATE OF EXAM: 10/09/2023 4:24 PM CLINICAL INDICATION:Female, 73 years old with history of [id number], [id number]; [facility] COMPARISON: None. TECHNIQUE: One radiographic view of the abdomen was obtained. FINDINGS: The bowel gas pattern is nonspecific without dilated loops of small or large bowel. There i s no evidence for organomegaly or pneumoperitoneum. The osseous structures are intact. Scattered de nsities project over the kidney the largest measuring 12 mm. Fecal material and gas are demonstrated throughout the colon and rectum. Right upper quadrant cholecystectomy clips. IMPRESSION: Multiple left renal calculi measuring up to 11 mm. Nonspecific bowel gas pattern without radiographic evidence for acute process.
== END | disposition home or self-care (01) ==
LOC: RADXRMAIN 16:09
PROVIDERS: ATTEND Urology
DX: N20.0 Calculus of kidney (principal); S93.401D Sprain of unspecified ligament of right ankle, subsequent encounter; S93.601D Unspecified sprain of right foot, subsequent encounter
CPT/HCPCS: 74018

== ENCOUNTER → 2024-12-20 | Outpatient (CLI) | payer MEDICARE | END | disposition home or self-care (01) | LOC: LABWHC1 16:02 | PROVIDERS: ATTEND Internal Medicine Critical Care Medicine | DX: J45.40 Moderate persistent asthma, uncomplicated (principal) | CPT/HCPCS: 36415; 85008 ==